=== PATIENT | male | born 1965 | race Caucasian/White ===

== ENCOUNTER 2020-04-07 09:00 | Outpatient (RCR) | payer OTHER, SELFPAY ==
[2020-03-10 08:25] VITALS: BP_SYST 85
--- NOTE | 2020-03-10 09:51 | PTOPEVAL ---
PHYSSICAL THERAPY EVALUATION AND PLAN OF TREATMENT 03-10-2020 Thank you for referring Kvng Fuchs to [facility], for the diagnosis of chronic R shoulder pain.? He is scheduled to be seen for therapy? 2x/week for 4 weeks. Please review, sign, date and return this plan of care CESAR. I agree with and certify that the following plan of care is medically necessary. Referring Physician Date Attending Provider: Dr. Tyrone Hay *PT Outpatient Evaluation Document 03/10/20 08:25 HARRIET (Rec: 03/10/20 09:35 HARRIET [id number]) Therapy Assessment Status Assessment Status Assessment Status Evaluation Outpatient Past Medical History Past Medical History Source of Past Medical History Patient Neurological History Hx Other Neurological Disorders Yes: neuropathy in feet and hands, legs Cardiovascular History Hx Other Cardiac Disorders Yes Respiratory History Hx Asthma Yes Hx Chronic Obstructive Pulmonary Disease Yes (COPD) Hx Sleep Apnea Yes: have CPAP Gastrointestinal History Hx Cirrhosis Yes Hx Gastrointestinal Bleed Yes Hx Other Gastrointestinal Disorders Yes: EGD with multiple procedures Musculoskeletal History Hx Other Musculoskeletal Disorders Yes: R > L shoulder pain;R big toe injury Endocrine History Hx Diabetes Yes Evaluation Information Problem Diagnosis chronic R shoulder pain Onset about 2 years Subjective Information have had chronic shoulder pain Query Text:As Reported By Patient/ , had other medical issues, so Family have not been able to adress shoulder pain; MRI 2016- tear in infraspinatus, subscapularis, supraspinatus; had injection 03-01-20help shoulder; 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
--- NOTE | 2020-04-07 09:57 | PTOPEVAL ---
PHYSICAL THERAPY REEVALUATION AND HOLD PT 04-07-2020 Refer to the clinical summary below for pt's comparison in status to the initial evaluation. He will be on HOLD for PT, until his follow up appointment. If PT is to continue, please give him a new script. Thank you for referring Kvng Fuchs to [facility]. Please review, sign, date and return this reevaluation CESAR. I agree with and certify that the following plan of care is medically necessary. Referring Physician Date Attending Provider: Dr. Tyrone Hay *PT Outpatient Re- evaluation Document 04/07/20 09:10 HARRIET (Rec: 04/07/20 09:57 HARRIET [id number]) Subjective Information Kvng reports: have dr Query Text:As Reported By Patient/ appointment Apr 26; feels Family like shoulder is moving a little better, but still hurts all time; R hand now hurting more too; have been doing his exercises; Pain Assessment Timing of Pain Assessment Timing of Pain Assessment Assessment Pain Scale Pain Scale Used Numeric (1 - 10) Self Report Pain Assessment Right Shoulder(s) Reported Pain Level 6 Radicular Pain Location L trunk and shoulder spasms and tight, comes and goes when move R arm Pain Frequency Chronic Other Pain Description feels like shoulder dislocated ; mid humerus been sawed off & hurts; Lowest Pain Intensity 6 Greatest Pain Intensity 9 Other Pain Aggravating Factors reaching arm to side and back; cannot lie on R shoulder; awaken from sleep3-4 Additional Pain Comments pain over anterior -mid humerus, top joint, mid scapular areashoulder pops Pain Score Pain Score 6: Self Report Additional Pain Score Comments also reports L shoulder starting to hurt as do more with R shoulder; R hand pain---3 & 4th fingers at MC joints- 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
--- NOTE | 2020-05-13 08:39 | PCPTNOTE ---
PHYSICAL THERAPY DISCHARGE 05-13-2020 Attending Provider: Dr. Tyrone Hay Patient:Kvng Fuchs Date of :1965 Mr. Fuchs has not returned for any further treatments since the reevaluation on 04/07/2020, therefore he will be discharged at this time. Refer to the reevaluation for his status at the last session. Thank you for referring this patient to [facility]. Please review, sign, date and return this discharge summary CESAR. I have been updated about the patient's current status and I agree with discharge from the above service at this time. Referring Physician Date
== END 2020-05-13 11:56 | disposition home or self-care (01) ==
LOC: ANHPT 09:00
PROVIDERS: PCP Emergency Medicine
DX: M25.511 Pain in right shoulder (principal); M75.101 Unspecified rotator cuff tear or rupture of right shoulder, not specified as traumatic; G25.89 Other specified extrapyramidal and movement disorders; G89.29 Other chronic pain
CPT/HCPCS: 97110; 97140; 97161

== ENCOUNTER 2020-05-28 14:23 | Outpatient (CLI) | payer OTHER, SELFPAY ==
--- NOTE | 2020-06-01 09:44 | WPDPFTINT ---
PFT Interpretation PFT Interpretation: This PFT met all criteria for ATS standards and reproducibility FEV/FVC post bronchodilator 53% FEV1 32% or 1.19 liters FVC 43% or 2.24 liters TLC 91% RV 126% RV/TLC 46% DLCO 65% when adjusted for alveolar volume but not adjusted for hemoglobin Flow volume loops showed Significant expiratory coving Impression: Severe airflow obstruction With air trapping and mildly decreased diffusion capacity. This pattern is suggestive of COPD with possible underlying asthma component. Clinical correlation is advised.
== END 2020-05-28 14:24 | disposition home or self-care (01) ==
LOC: ANHPFT 14:24
PROVIDERS: PCP Emergency Medicine; Visit Provider Nurse Practitioner
DX: J44.9 Chronic obstructive pulmonary disease, unspecified (principal); R94.2 Abnormal results of pulmonary function studies
CPT/HCPCS: 94060; 94726; 94729

== ENCOUNTER 2021-01-11 12:06 | Emergency (ER) | payer OTHER, SELFPAY ==
--- NOTE | ~2021-01-11 | XR_ITS ---
EXAMINATION: XR knee RT min 4V EXAM DATE: 01/11/2021 13:15 INDICATION: Pain, Swelling Rt knee;no known injury . TECHNIQUE: Right knee lateral, frontal AP, frontal PA tunnel, sunrise projections. There is no prior study for comparison. FINDINGS: No evidence osteochondral defect or joint body in the right knee joint. There are no acut e fractures or dislocations identified. There is no subcutaneous gas. There is a small joint effusi on. There is some edema within Hoffa's fat pad and along the medial anterior aspect of the knee. The re are no radiopaque foreign bodies. IMPRESSION: 1. Small right knee joint effusion. 2. Mild soft tissue swelling. Reviewed, dictated and finalized at location A.
[2021-01-11 12:15] VITALS: BP 120/68; PULSE 72; RESP 16; TEMP 36.5; O2SAT 96
--- NOTE | 2021-01-11 13:04 | ED.EXTPRO ---
HPI - Extremity Problem General Chief complaint: Extremity Problem,Nontraumatic Stated complaint: R KNEE PAIN Time Seen by Provider: 01/11/21 12:55 Source: patient and RN notes reviewed Mode of arrival: ambulatory Limitations: no limitations History of Present Illness HPI Narrative: Patient presents today complaining of right knee pain x1 week. States pain is present with any movement of the knee. Currently rates his pain 7/10 and has been taking Tylenol and using a brace with mild relief. Pain is significantly worse with weightbearing. Denies that his baseline and that neuropathy is worse than normal. MD Complaint: extremity swelling Related Data Home Medications Medication Instructions Recorded Confirmed esomeprazole magnesium 20 mg 20 mg PO DAILY 03/25/19 01/11/21 capsule,delayed release gabapentin 300 mg capsule 900 mg PO TID 03/25/19 01/11/21 glimepiride 4 mg tablet 8 mg PO BID 03/25/19 01/11/21 metformin 850 mg tablet 1,700 mg PO BID 03/25/19 01/11/21 propranolol 20 mg tablet 60 mg PO BID tablet 03/25/19 01/11/21 albuterol sulfate 2 puff INHALATION Q4-6H PRN 01/11/21 01/11/21 amitriptyline 25 mg PO HS 01/11/21 01/11/21 budesonide-formoterol [Symbicort] 2 puff INHALATION BID 01/11/21 01/11/21 insulin glargine [Basaglar KwikPen 28 unit SUBCUT DAILY 01/11/21 01/11/21 U-100 Insulin] ipratropium bromide [Atrovent HFA] 2 puff INHALATION QID 01/11/21 01/11/21 losartan 25 mg PO DAILY 01/11/21 01/11/21 simvastatin 20 mg PO DAILY 01/11/21 01/11/21 Allergies Allergy/AdvReac Type Severity Reaction Status Date / Time Penicillins Allergy Unknown Hives Verified 01/11/21 12:36 Review of Systems Review of Systems: CONSTITUTIONAL: Denies body aches, fever, chills, or sweats. EYES: Denies visual changes, redness, or discharge. ENT: Denies rhinorrhea, congestion, sore throat, or otalgia. CARDIOVASCULAR: Denies chest pain, palpitations, or edema. RESPIRATORY: Denies cough or dyspnea. GASTROINTESTINAL: Denies abdominal pain, nausea, vomiting, or diarrhea. GENITOURINARY: Denies dysuria or hematuria. SKIN: Denies rash, itching, or wounds. MUSCULOSKELETAL: Denies back pain, or myalgia. + Right knee pain NEUROLOGIC: Denies headache, numbness, tingling, or weakness. PSYCH: Denies depression or anxiety. PMFSH Past Medical History Medical History Anemia Bleeding tendency Cardiac arrhythmia Diabetes Elevated lipids Hepatitis Hypertension Neuropathy Surgical History Surgical History History of ear surgery History of esophagogastroduodenoscopy (EGD) Family History Family History Father Diabetes mellitus Mother Squamous cell carcinoma Father Diabetes mellitus Social History Social History Smoking status: Former smoker Alcohol intake: never Comments At time of signature, I have reviewed and agree with nursing past medical, surgical, social and family history unless otherwise noted. Please see nursing chart for further information. There is no relevant family history pertinent to the presenting complaint Exam Narrative: GENERAL: Well-appearing, well-nourished, and in no acute distress. HEAD: Normocephalic, atraumatic. EYES: EOMI. No redness or drainage. Conjunctivae normal. ENT: Mucous membranes pink and moist. NECK: Normal AROM. CHEST: No respiratory distress. EXTREMITIES: Right knee: Tenderness generally about the knee, anteriorly and posteriorly. Effusion noted. No erythema or ecchymosis noted. Pain with any range of motion or movement. Distal sensation intact. Capillary refill normal. Posterior tibial pulse normal. SKIN: Warm, dry, no rash. Capillary refill normal. Normal skin turgor. NEURO: No focal deficits. Alert and oriented x3. Gait steady. PSYCH:
== END 2021-01-11 13:49 | disposition home or self-care (01) ==
PROVIDERS: Emergency Provider Nurse Practitioner; PCP Emergency Medicine
DX: M25.461 Effusion, right knee (principal); Z87.891 Personal history of nicotine dependence; E11.9 Type 2 diabetes mellitus without complications; I10 Essential (primary) hypertension; G62.9 Polyneuropathy, unspecified; D64.9 Anemia, unspecified
CPT/HCPCS: 73564; 99213; G0463

== ENCOUNTER 2021-01-22 09:46 | Outpatient (CLI) | payer OTHER, SELFPAY ==
--- NOTE | ~2021-01-22 | MR_ITS ---
EXAMINATION: MR knee RT wo con DATE: 01/22/2021 11:12 INDICATION: Right knee pain. TECHNIQUE: Magnetic resonance imaging (MRI) of the right knee was performed without intravenous contr ast. Sequences included axial PD-weighted FS FSE, coronal PD-weighted FSE and PD-weighted FS FSE, sag ittal PD-weighted FSE, and sagittal T2-weighted FS FSE. COMPARISON: Right knee radiographs 01/11/2021 FINDINGS: Medial compartment: Medial meniscus is normal. There is cartilage surface irregularity of tibial condyle. There is shallo w partial-thickness cartilage loss of femoral condyle. There is focal deep partial thickness cartilag e loss of femoral condyle involving the central articular surface with mild subchondral edema-like si gnal intensity. Lateral compartment: The lateral meniscus is normal. There is cartilage surface irregularity of tibial condyle. Femoral ca rtilage is normal. Patellofemoral compartment: There is shallow partial-thickness cartilage loss of patellar medial facet, median ridge, and lateral facet. There is cartilage surface irregularity of trochlea. Ligaments and tendons: The anterior and posterior cruciate ligaments are normal. Medial collateral ligament and lateral imani ateral ligament complex are intact. There is mild patellar tendinopathy. Fluid: There is a moderate-sized knee joint effusion. There is mild superficial infrapatellar bursitis. IMPRESSION: 1. Moderate chondrosis of medial compartment and mild chondrosis of lateral and patellofemoral compar tments. 2. Moderate-sized knee joint effusion. Reviewed, dictated and finalized at location A. IMPRESSION: 1. Moderate chondrosis of medial compartment and mild chondrosis of lateral and patellofemoral compartments. 2. Moderate-sized knee joint effusion.
== END 2021-01-22 09:47 | disposition home or self-care (01) ==
LOC: ANHIMG 09:47
PROVIDERS: PCP Emergency Medicine; Visit Provider Orthopaedic Surgery
DX: M25.461 Effusion, right knee (principal)
CPT/HCPCS: 73721

== ENCOUNTER 2022-08-14 10:16 | Outpatient (CLI) | payer OTHER, SELFPAY ==
--- NOTE | ~2022-08-14 | MR_ITS ---
MRI of the right knee Clinical history: Internal derangement Technique: Coronal proton density and proton density-weighted images, sagittal proton-density and T2 fat-sat images, and axial proton-density fat-saturated images were acquired. Findings: Anterior and posterior cruciate ligaments are intact. Medial collateral ligament and the la teral collateral ligament complex are intact. Popliteus tendon is intact. There is horizontal/oblique tear of the posterior horn of the medial meniscus. No lateral meniscal te ar identified. There is focal high-grade chondromalacia the posterior aspect of the medial femoral condyle, with foc al subchondral reactive marrow edema. Articular cartilage in the lateral and patellofemoral compartme nts is well preserved. Extensor mechanism is intact. Minimal joint effusion present. No Calderon's cyst. Impression: Horizontal/oblique tear of the posterior horn of the medial meniscus. Focal chondromalacia in the medial femoral condyle, as detailed above. Reviewed, dictated and finalized at [facility]. Impression: Horizontal/oblique tear of the posterior horn of the medial meniscus. Focal chondromalacia in the medial femoral condyle, as detailed above.
== END 2022-08-14 10:17 | disposition home or self-care (01) ==
PROVIDERS: PCP Emergency Medicine; Visit Provider Orthopaedic Surgery
DX: S83.241A Other tear of medial meniscus, current injury, right knee, initial encounter (principal); M94.261 Chondromalacia, right knee; G89.29 Other chronic pain
CPT/HCPCS: 73721

== ENCOUNTER 2022-08-16 13:51 | Outpatient (CLI) | payer OTHER, SELFPAY ==
--- NOTE | ~2022-08-16 | CT_ITS ---
CT Scan of the Chest without Contrast: Clinical Indication: Lung cancer screening, personal history of nicotine dependence Technique: Contiguous sections were acquired throughout the chest without intravenous contrast. Dose reduction technique was used on this scan by utilizing automated exposure control and iterative recon struction technique. The dose-length product (DLP) was 282.73 mGy-cm. COMPARISON: 09/17/2013 Findings: There is no evidence of any significant mediastinal, hilar or axillary lymphadenopathy. Mild coronary artery calcifications noted. There is an area of prominent serpiginous opacities on the right side o f the distal esophagus, suggestive of varices or other prominent vessels. Mass less likely given that attenuation about the soft tissue densities. There is no evidence of pleural or pericardial effusion. Calcified left upper lobe granulomas noted. No other pulmonary nodule identified. Images through the upper abdomen reveal no abnormalities. Impression: Lung-RADS 2: Benign appearance. 12 month follow-up screening CT advised. Suspected interval development of focal varices along the right side of the distal esophagus. Correla te clinically. Consider endoscopy as indicated. Reviewed, dictated and finalized at [facility]. Impression: Lung-RADS 2: Benign appearance. 12 month follow-up screening CT advised. Suspected interval development of focal varices along the right side of the dis guerrero esophagus. Correlate clinically. Consider endoscopy as indicated.
== END 2022-08-16 13:52 | disposition home or self-care (01) ==
PROVIDERS: PCP Emergency Medicine; Visit Provider Nurse Practitioner
DX: Z12.2 Encounter for screening for malignant neoplasm of respiratory organs (principal); Z87.891 Personal history of nicotine dependence
CPT/HCPCS: 71271

== ENCOUNTER 2022-08-25 09:28 | Outpatient (CLI) | payer OTHER, SELFPAY ==
--- NOTE | 2022-08-25 09:38 | ECG_ITS ---
Measurements Intervals [place] Rate: 67 P: 19 ND: 207 QRS: -20 QRSD: 118 T: 15 QT: 405 QTc: 430 Interpretive Statements SINUS RHYTHM LEFTWARD AXIS ABNORMAL ECG NO PREVIOUS ECG AVAILABLE FOR COMPARISON Electronically Signed On 08-25-2022 15:30:57 CDT by Naun Junior M.D.
[2022-08-25 10:11] LABS: Anion Gap 8 mmol/L (8-16); Blood Urea Nitrogen 12 mg/dL (9-20); Calcium 8.8 mg/dL (8.4-10.2); Carbon Dioxide 29 mmol/L (22-30); Chloride 103 mmol/L (98-107); Estimated Glomerular Filt Rate > 60; Glucose 126 mg/dL (65-110); Potassium 4.2 mmol/L (3.4-5.0); Sodium 140 mmol/L (137-145)
[2022-08-25 10:33] LABS: INR 1.1; Prothrombin Time 13.9 Seconds (11.1-14.7)
[2022-08-25 10:34] LABS: Partial Thromboplastin Time 29.2 SECONDS (22.3-36.8)
== END 2022-08-25 09:29 | disposition home or self-care (01) ==
LOC: ANHSURGERY 09:32
PROVIDERS: Anesthesiology; PCP Emergency Medicine; Visit Provider Orthopaedic Surgery
DX: E11.9 Type 2 diabetes mellitus without complications (principal); K75.81 Nonalcoholic steatohepatitis (NASH); Z01.818 Encounter for other preprocedural examination
CPT/HCPCS: 36415; 80048; 85610; 85730; 93005

== ENCOUNTER 2022-09-13 06:55 | Day surgery (SDC) | payer OTHER, SELFPAY ==
[2022-08-24 12:41] VITALS: BMI 36.3
--- NOTE | 2022-08-24 12:48 | PC.NURSE ---
Addendum entered by Christine Dumont RN 09/05/22 12:17: PT TO ARRIVE AT 0830 ON 09/13/22 FOR SURGERY AT 1030. LAST DOSE OF VITAMINS 09/09/22. Original Note: Report to the Outpatient Waiting Room, entrance under the green pavilion located off [facility], at time 7:00 on date 09/01/22. Planned Procedure Time: 9:00. Time changes happen often and if your time is changed the preop area will call you the afternoon before. - You and your visitor will be asked to self-screen and do not enter if you have any COVID symptoms. - A mask is optional within the hospital at this time. Patients may have clear liquids (water, carbonated beverages, clear teas, apple juice) until 3 hours prior to surgery with a maximum of 20 ounces. - No food from midnight until time of surgery Take the following medications with a SIP of water the morning of surgery: INHALERS, PROPRANOLOL DO NOT STOP ANY OF YOUR OTHER PRESCRIPTION MEDICATIONS PRIOR TO SURGERY ?EXCEPT THE FOLLOWING Medications to discontinue per physician: VITAMINS/SUPPLEMENTS Date to take last dose: 08/28/22 Please no make-up, nail italian, hairspray, perfume, deodorant, or body powder the day of surgery. No jewelry (including any body piercings) or valuables the day of surgery, leave them at home. Please take a shower or bath the night before, or the morning of, surgery with an antibacterial soap. Wear comfortable, loose fitting clothing. - Jewelry must be removed prior to entering the operating room. Rings and piercings that are not removed may be cut off. - The hospital will not accept responsibility for valuables. - Please leave all valuables, including medications, at home the day of surgery. If you are going home after surgery, a licensed local bulk driver must drive you home. - NO public transportation without another adult if you receive anesthesia. - We recommend that an adult stay with you for 24 hours following discharge. - We also recommend that you do not drive, make important decision, drink alcoholic beverages, or take any drugs that were not prescribed by your health care provider for at least 24 hours after your discharge time. Follow any additional instructions given to you from your surgeon. If you or anyone in your household have experienced Covid symptoms in the past week, please notify your surgeon or the nurse liaison at the phone number below for possible testing. Telephone instructions given to DEIDRA AVILEZ and asked if any additional questions and then verbalized understanding. Patient advised to call surgeon office or pre surgery nurse liaison [phone] if any additional questions.
--- NOTE | 2022-08-31 12:47 | WPDANESEPPF ---
Anes - Initial Pre Proc Eval Procedure: Operation Date: 09/01/22 09:00 Proposed Procedures p Right Knee Arthroscopy With Possible Repair of Medial Meniscus Versus Meniscectomy - Chetan Pa MD Date/Time: 08/31/22 12:47 Surgeon: Chetan Pa MD Pre Op Diagnosis: right medial meniscus tear Patient Data Age: 57 Gender: M Height: 1.85 m Weight: 124.75 kg Allergies Allergy/AdvReac Type Severity Reaction Status Date / Time Penicillins Allergy Unknown Hives Verified 08/24/22 12:38 Home Medications Medication Instructions Recorded Confirmed Type esomeprazole magnesium 20 mg 20 mg PO DAILY 03/25/19 08/25/22 History capsule,delayed release (Nexium) glimepiride 4 mg tablet 8 mg PO BID 03/25/19 08/25/22 History metformin 850 mg tablet 1,700 mg PO BID 03/25/19 08/25/22 History propranolol 20 mg tablet 60 mg PO BID 03/25/19 08/25/22 History albuterol sulfate 90 mcg/actuation 2 puff inhalation Q4-6H PRN 01/11/21 08/25/22 History aerosol inhaler Shortness Of Breath amitriptyline 25 mg tablet 25 mg PO HS 01/11/21 08/25/22 History insulin glargine 100 unit/mL (3 28 unit subcut BID 01/11/21 08/25/22 History mL) subcutaneous pen (Basaglar KwikPen U-100 Insulin) losartan 25 mg tablet 25 mg PO DAILY 01/11/21 08/25/22 History simvastatin 20 mg tablet 20 mg PO DAILY 01/11/21 08/25/22 History fluticasone fur. 100 mcg-umeclid 1 inh inhalation DAILY 08/24/22 08/25/22 History 62.5 mcg-vilant 25 mcg inhalat.powder (Trelegy Ellipta) multivitamin 1 tablet PO DAILY 08/24/22 08/25/22 History chlorhexidine gluconate 4 % 1 applic topical DAILY #237 mL 08/25/22 08/25/22 Rx topical liquid (Hibiclens) Results Review: All pre-operative results and documents have been reviewed as part of the pre-operative evaluation. [facility] Past Medical History Medical History (Updated 08/31/22 @ 12:49 by Dario Daniels DO) Anemia Bleeding tendency Cardiac arrhythmia Cirrhosis Diabetes Type II Elevated lipids Esophageal varices Hepatitis Hypertension Neuropathy Right knee pain Surgical History Surgical History History of ear surgery History of esophagogastroduodenoscopy (EGD) [id number] [facility] History of rotator cuff surgery Family History Family History Father Diabetes mellitus Mother Squamous cell carcinoma Father Diabetes mellitus Other Asthma Heart disease History of arthritis History of lung disease History of neuropathy Social History Social History Smoking packs per day: 1 Smoking cigarettes per day: 20.0 Years smoked: 10 Smoking pack-years: 10.00 Smoking status: Former smoker Tobacco type: cigarettes Smoking end date: 05/07/07 Additional smoking assessment comments: Sarwat smoked 1 pack per day for 10 years Alcohol intake: never Substance use: never Substance use type: does not use Living arrangements: with family Gender identity (if verbalized by the patient): Male Spiritual care concerns: No Anes - Eval Final PreProcedure Day of Procedure 08/31/22 12:47 Patient weight: obese Heart: regular rate and rhythm Lungs: clear to auscultation Airway: Mallampati scale class II Neurological: alert and oriented Last oral intake: >/= 8 hours ASA classification: IV Emergent: no Anesthetic plan: proceed Anesthesia type and monitoring: general ETT and standard monitoring Results Review: All pre-operative results and documents have been reviewed as part of the pre-operative evaluation. Informed Consent: The patient's anesthetic plan and its attendant risks and benefits were discussed with the patient/family/POA. Questions were solicited and answers provided to the satisfaction of the patient/family/POA.
--- NOTE | 2022-09-05 12:16 | PC.NURSE ---
Pt states no changes in medications or health history since initial interview. New pre-op instructions reviewed with pt. Pt denies further questions at this time.
[2022-09-13] VITALS (7 sets, daily range): BP systolic 93–124; BP diastolic 54–75; PULSE 62–74; RESP 10–16; TEMP 36.4; O2SAT 95–100
--- NOTE | 2022-09-13 07:20 | WPDHPUPDATE1 ---
History and Physical Update Update Date/Time: 09/13/22 07:20 History and Physical has been reviewed, including an updated exam of the patient. There are NO changes in the patient's condition. Risks, benefits, and alternatives have been discussed and questions answered. Patient agrees to proceed with procedure.
[2022-09-13] MEDS: ACETAMINOPHEN 500 MG TABLET 1000 MG PO (09:04)
[2022-09-13] MEDS: CELECOXIB 200 MG CAPSULE PO (09:05)
[2022-09-13 09:17] LABS: Glucose Point of Care 135 mg/dl (65-105)
--- NOTE | 2022-09-13 09:42 | SUR.PREOP ---
pt states has used crutched before,ordered crutches for home use.
--- NOTE | 2022-09-13 09:42 | WPDANESEPPF ---
Anes - Initial Pre Proc Eval Procedure: Operation Date: 09/13/22 10:30 Proposed Procedures p Right Knee Arthroscopy With Possible Repair of Medial Meniscus Versus Meniscectomy - Chetan Pa MD Date/Time: 09/13/22 09:42 Surgeon: Chetan Pa MD Pre Op Diagnosis: right medial meniscus tear Patient Data Age: 57 Gender: M Height: 1.85 m Weight: 121.5 kg Last Vital Signs Temp 97.6 F 09/13/22 08:43 Pulse 64 09/13/22 08:43 Resp 16 09/13/22 08:43 BP 124/63 09/13/22 08:43 Pulse Ox 98 09/13/22 08:43 O2 Del Method Room Air 09/13/22 08:43 Allergies Allergy/AdvReac Type Severity Reaction Status Date / Time Penicillins Allergy Severe Hives Verified 09/13/22 08:58 Home Medications Medication Instructions Recorded Confirmed Type esomeprazole magnesium 20 mg 20 mg PO DAILY 03/25/19 09/13/22 History capsule,delayed release (Nexium) glimepiride 4 mg tablet 8 mg PO BID 03/25/19 09/13/22 History metformin 850 mg tablet 1,700 mg PO BID 03/25/19 09/13/22 History propranolol 20 mg tablet 60 mg PO BID 03/25/19 09/13/22 History albuterol sulfate 90 mcg/actuation 2 puff inhalation Q4-6H PRN 01/11/21 09/13/22 History aerosol inhaler Shortness Of Breath amitriptyline 25 mg tablet 25 mg PO HS 01/11/21 09/13/22 History insulin glargine 100 unit/mL (3 28 unit subcut BID 01/11/21 09/13/22 History mL) subcutaneous pen (Basaglar KwikPen U-100 Insulin) losartan 25 mg tablet 25 mg PO DAILY 01/11/21 09/13/22 History simvastatin 20 mg tablet 20 mg PO DAILY 01/11/21 09/13/22 History fluticasone fur. 100 mcg-umeclid 1 inh inhalation DAILY 08/24/22 09/13/22 History 62.5 mcg-vilant 25 mcg inhalat.powder (Trelegy Ellipta) multivitamin 1 tablet PO DAILY 08/24/22 09/13/22 History Laboratory Tests 09/13/22 09:15 POC Capillary Glucose 135 H mg/dl (65-105) Patient hx anesthesia problems: none Family hx anesthesia problems: none Results Review: All pre-operative results and documents have been reviewed as part of the pre-operative evaluation. [facility] Past Medical History Medical History (Updated 08/31/22 @ 12:49 by Dario Daniels DO) Anemia Bleeding tendency Cardiac arrhythmia Cirrhosis Diabetes Type II Elevated lipids Esophageal varices Hepatitis Hypertension Neuropathy Right knee pain Surgical History Surgical History History of ear surgery History of esophagogastroduodenoscopy (EGD) [id number] [facility] History of rotator cuff surgery Family History Family History Father Diabetes mellitus Mother Squamous cell carcinoma Father Diabetes mellitus Other Asthma Heart disease History of arthritis History of lung disease History of neuropathy Social History Social History Smoking packs per day: 1 Smoking cigarettes per day: 20.0 Years smoked: 10 Smoking pack-years: 10.00 Smoking status: Former smoker Tobacco type: cigarettes Smoking end date: 05/07/07 Additional smoking assessment comments: Sarwat smoked 1 pack per day for 10 years Alcohol intake: never Substance use: never Substance use type: does not use Living arrangements: with family Gender identity (if verbalized by the patient): Male Spiritual care concerns: No Anes - Eval Final PreProcedure Day of Procedure 09/13/22 09:42 Patient weight: obese Heart: regular rate and rhythm Lungs: clear to auscultation Airway: Mallampati scale class II Neurological: alert and oriented Last oral intake: >/= 8 hours ASA classification: III Emergent: no Anesthetic plan: proceed Anesthesia type and monitoring: general LMA and standard monitoring Results Review: All pre-operative results and documents have been reviewed as part of the pre-ope
[2022-09-13] MEDS: LACTATED RINGERS 1,000 ML 30 ML IV CONT (10:07)
[2022-09-13] MEDS: ceFAZolin 3 GM/D5W 100 ML 100 ML IVPB (10:17)
[2022-09-13] MEDS: BUPivacaine HCL 0.5% 10 ML AMP 20 ML INFILTRATE (10:45)
--- NOTE | 2022-09-13 11:37 | W.PM.PROC2 ---
Procedure Note - Detailed Date of Procedure 09/13/22 Pre-op Diagnosis right medial meniscus tear Post-op Diagnosis Same Procedure Performed RIGHT KNEE SCOPE Surgeon Chetan Pa MD Anesthesia General Description of Procedure PATIENT WAS TAKEN TO THE OR. THE RIGHT LEG WAS PREPPED AND DRAPED STERILE. TROCARS WERE PLACED IN THE USUAL FASHION. CAMERA WAS INTRODUCED. THERE WAS CHONDROMALACIA TO THE PATELLA FEMORAL JOINT. THERE WAS A LOT OF SYNOVITIS IN ALL COMPARTMENTS. THE MEDIAL COMPARTMENT SHOWED CHONDROMALACIA TO THE MEDIAL FEMORAL CONDYLE. A SHAVER WAS USED TO PREFORM A CHONDROPLASTY. THERE WAS A COMPLEX MEDIAL MENISCUS TEAR. THE TEAR WAS RESECTED WITH A BITER AND A SHAVER DOWN TO A SMOOTH BASE. ABOUT 20% OF THE MENISCUS WAS REMOVED. THE ACL WAS INTACT. THE LATERAL MENISCUS WAS NOT TORN. THE LATERAL COMPARTMENT HAD MINIMAL CHONDROMALACIA. CHONDROPLASTY WAS PREFORMED. SYNOVECTOMY WAS PREFORMED. THE PATELLO FEMORAL JOINT UNDERWENT CHONDROPLASTY. THERE WAS GRADE 2 CHONDROMALACIA IN PART OF THE TROCHLEA AND PART OF THE PATELLA. SYNOVECTOMY WAS PREFORMED IN THE SUPERIOR MEDIAL COMPARTMENT. THE WOUNDS WERE APPROXIMATED WITH 4.0 NYLON. STERILE DRESSING WAS APPLIED. PATIENT WAS EXTUBATED. Estimated Blood Loss 5 Complications No immediate complications Condition Stable Disposition PACU
[2022-09-13 11:46] LABS: Glucose Point of Care 170 mg/dl (65-105)
== END 2022-09-13 13:15 | disposition home or self-care (01) ==
PROVIDERS: PCP Emergency Medicine; Visit Provider Orthopaedic Surgery
PROC: (CPT 29870; principal; 2022-09-13 10:30)
DX: M23.331 Other meniscus derangements, other medial meniscus, right knee (principal); M65.861 Other synovitis and tenosynovitis, right lower leg; M22.41 Chondromalacia patellae, right knee; I10 Essential (primary) hypertension; E11.40 Type 2 diabetes mellitus with diabetic neuropathy, unspecified; E78.5 Hyperlipidemia, unspecified; K74.60 Unspecified cirrhosis of liver; Z87.891 Personal history of nicotine dependence; E66.9 Obesity, unspecified; Z68.35 Body mass index [BMI] 35.0-35.9, adult; Z79.84 Long term (current) use of oral hypoglycemic drugs; Z79.51 Long term (current) use of inhaled steroids; Z79.4 Long term (current) use of insulin
CPT/HCPCS: 29881; 29876; 82948; A9270; J0690; J1100; J2250; J2405; J2704; J3010; J7120

== ENCOUNTER 2023-08-01 14:04 | Outpatient (CLI) | payer MEDICARE, SELFPAY ==
--- NOTE | ~2023-08-01 | MR_ITS ---
EXAMINATION: MR knee RT wo con DATE: 08/01/2023 15:09 INDICATION: Other tear of medial meniscus. Right knee pain and swelling. TECHNIQUE: Magnetic resonance imaging (MRI) of the right knee was performed without intravenous contr ast. Sequences included axial PD-weighted FS FSE, coronal PD-weighted FSE and PD-weighted FS FSE, sag ittal PD-weighted FSE, and sagittal T2-weighted FS FSE. COMPARISON: Right knee radiographs 11/20/2022, MRI 08/14/2022 FINDINGS: Medial compartment: There is a complex tear involving body and posterior horn of medial meniscus. There is cartilage surf talisha irregularity of tibial condyle. There is partial-thickness cartilage loss of femoral condyle, arleen p at the central articular surface where there is mild subchondral edema-like marrow signal intensity . Lateral compartment: Lateral meniscus is normal. Lateral compartment cartilage is normal. Patellofemoral compartment: There is shallow partial-thickness cartilage loss of patellar lateral facet. There is cartilage surfa ce irregularity of trochlea. Ligaments and tendons: The anterior and posterior cruciate ligaments are normal. There are changes of prior sprain of fibula r collateral ligament characterized by increased signal intensity. Again seen is fluid between the cage perior and deep components of medial collateral ligament. There is mild patellar tendinopathy. Fluid: There is a small knee joint effusion. IMPRESSION: 1. Moderate chondrosis of medial compartment and mild chondrosis of lateral and patellofemoral compar tments. 2. Complex tear of medial meniscus. 3. Small knee joint effusion. Reviewed, dictated and finalized at location A. IMPRESSION: 1. Moderate chondrosis of medial compartment and mild chondrosis of lateral and patellofemoral compartments. 2. Complex tear of medial meniscus. 3. Small knee joint effusion.
== END 2023-08-01 14:05 ==
LOC: GOSHIMG 14:04
PROVIDERS: PCP Emergency Medicine; Visit Provider Orthopaedic Surgery
DX: S83.231A Complex tear of medial meniscus, current injury, right knee, initial encounter (principal); M94.261 Chondromalacia, right knee; M25.461 Effusion, right knee; X58.XXXA Exposure to other specified factors, initial encounter
CPT/HCPCS: 73721

== ENCOUNTER 2023-08-20 12:54 | Outpatient (CLI) | payer MEDICARE, SELFPAY ==
[2023-08-20 14:24] LABS: Appearance Urine Clear (Clear); Bilirubin Urine Negative (Negative); Blood Urine Negative (Negative); Color Urine Yellow (Yellow); Glucose Urine UA 3+ mg/dL (Negative); Ketones Urine Negative (Negative); Leukocyte Esterase Ur Negative LEU/UL (Negative); Nitrate Urine Negative (Negative); Protein Urine Negative (Negative); Urobilinogen Urine 0.2 mg/dL (<2.0)
[2023-08-20 14:24] LABS: Eosinophils Absolute Auto 0.1 K/mm3 (0-0.3); Eosinophils Percent Auto 3.4 % (0-4.4); Hematocrit 43.2 % (42.0-52.0); Hemoglobin 14.4 g/dL (14.0-18.0); Immature Granulocyte Absolute 0.03 K/mm3 (0.00-0.031); Immature Granulocyte Percent A 0.8 % (0-0.5); Immature Platelet Fraction Pct 5.9 % (0.9-11.2); Lymphocytes Absolute Auto 0.73 K/mm3 (0.9-3.2); Lymphocytes Percent Auto 18.8 % (18.3-44.2); Mean Corpuscular HGB Conc 33.3 g/dl (32-36); Mean Corpuscular Hemoglobin 29.6 pg (26-34); Mean Corpuscular Volume 88.9 fl (80-100); Mean Platelet Volume 11.5 fl (7.4-10.4); Monocytes Absolute Auto 0.3 K/mm3 (0.1-0.6); Monocytes Percent Auto 8.5 % (2.6-8.5); Neutrophils Absolute Auto 2.6 K/mm3 (1.3-6.7); Neutrophils Percent Auto 67.5 % (45.5-73.1); Platelet Count Result 82 k/mm3 (150-375); Red Blood Count 4.86 M/mm3 (4.6-6.20); Red Cell Distribution Width 13.4 % (11.5-14.5); White Blood Count 3.9 K/mm3 (4.5-10.0)
[2023-08-20 14:45] LABS: Add Urine Microscopic? NO
[2023-08-20 15:22] LABS: Alanine Aminotransferase 35 U/L (6-50); Albumin Level 4.3 g/dL (3.5-5.1); Alkaline Phosphatase 82 U/L (38-126); Anion Gap 7 mmol/L (4-12); Aspartate Amino Transferase 37 U/L (17-59); Bilirubin,Total 2.3 mg/dL (0.2-1.3); Blood Urea Nitrogen 11 mg/dL (9-20); Calcium 9.4 mg/dL (8.4-10.2); Carbon Dioxide 23 mmol/L (22-30); Chloride 105 mmol/L (98-107); Estimated Glomerular Filt Rate > 60; Glucose 329 mg/dL (65-110); Phosphorus 3.3 mg/dL (2.5-4.5); Potassium 4.1 mmol/L (3.4-5.0); Sodium 135 mmol/L (137-145)
[2023-08-20 15:51] LABS: Prostate Specific Antigen 0.4 ng/mL (< OR = 4.0)
[2023-08-20 16:18] LABS: Hemoglobin A1C 9.9 % (<5.7)
[2023-08-20 16:29] LABS: Folic Acid 19.7 ng/mL (2.76->20); Vitamin B12 > 1000.0 pg/mL (239-931)
[2023-08-20 23:58] LABS: Creatinine Urine 71.9 mg/dL
[2023-08-21 00:05] LABS: MALB Creatinine Ratio < 8.3 mg/g (0-30); Microalbumin Urine Random < 6.0 mg/L (0-16.7)
== END 2023-08-20 12:55 | disposition home or self-care (01) ==
PROVIDERS: PCP Emergency Medicine; Visit Provider Emergency Medicine
DX: Z01.818 Encounter for other preprocedural examination (principal); D69.6 Thrombocytopenia, unspecified; E11.40 Type 2 diabetes mellitus with diabetic neuropathy, unspecified; E78.2 Mixed hyperlipidemia; G47.31 Primary central sleep apnea; G47.33 Obstructive sleep apnea (adult) (pediatric); I10 Essential (primary) hypertension; J43.2 Centrilobular emphysema; K63.5 Polyp of colon; N40.1 Benign prostatic hyperplasia with lower urinary tract symptoms; M25.561 Pain in right knee
CPT/HCPCS: 36415; 80069; 80076; 81003; 82043; 82607; 82746; 83036; 84153; 84443; 85025; 85055

== ENCOUNTER 2023-09-06 15:45 | Outpatient (RCR) | payer MEDICARE, SELFPAY ==
--- NOTE | 2023-08-23 16:22 | PTOPEVAL1 ---
Assessment and note entered by Tanya Iraheta, PT, DPT Evaluation Information Assessment Status Evaluation Diagnosis R knee pain Subjective Information Pt states 1 year ago he got a partial R knee meniscectomy and a partial meniscus repair. Pt states he felt great for a week. He states he has had fluid draining off his knee 4-5 times, he states after he gets its drained it will feel great for a few days. He has also gotten a couple of steroid injections without relief. He states for the last year he has had consistent knee pain more than 90% of the time. He states he has a new meniscus tear, and also has bowed legs. Pt states he refuses to self inflict pain and doing therapy to make his knee worse, when surgery is his only option. He states his legs are strong and there is no muscle weakness but it feels like his leg is unstable and is going to dislocate with every step he takes. He reports his pain is a 6/10 at rest, 9/10 with activity, particularly going down stairs. He states he is not sure how much he will be able to participate in therapy d/t pain. Reported Pain Level Pain Score 6: Self Report Assessment PT Clinical Summary Kvng presents to therapy today for his initial evaluation with a diagnosis of a R meniscus tear. Today he demonstrates significant functional limitations d/t pain. He demonstrates active knee motion from 15 to 95 deg, ambulates with significant deviations and at a very decreased gait speed, and he cannot sit<>stand or climb stairs without UE support. All exercises and functional activities and limited by pain reports. Skilled therapy services are indicated to improve stability, manage pain, and to promote a return to PLOF. Therapy prognosis is questionable d/t high pain reports and poor tolerance. Plan of Care Interventions Electrical Stimulation,Gait Training,Hot Pack/Cold Pack,Manual Therapy,Neuro Re-education,Patient/ Caregiver Educati,Therapeutic Activities, Therapeutic Exercise PT Services Indicated Yes Treatment Frequency and 1x/wk for 6 visits Duration These treatments will address the objective and functional deficits as defined above. The patient will be advanced safely and appropriately in order for the patient to progress towards his/her prior level of function. Additional exercises will be introduced and as well as a comprehensive home exercise program upon d
--- NOTE | 2023-08-23 16:22 | OPREHPOC ---
Outpatient Therapy Plan of Care This is a Multidisciplinary Plan of Care that may contain components documented by all disciplines (PT, OT, and ST.) PT Problem 1 PT Problem #1 Knowledge Deficit PT Goal 1 Goal Pt to be IND with issued HEP Target Visit 8 PT Problem 2 PT Problem #2 Pain PT Goal 1 Goal Pt to report knee pain no greater than 5/10 in the last week. Target Visit 8 PT Goal 2 Goal Pt to report 75% improvement in overall symptoms. Target Visit 8 PT Problem 3 PT Problem #3 Impaired Range of Motion PT Goal 1 Goal Pt to improve active knee flexion ROM to 110 deg. Target Visit 8 PT Goal 2 Goal Pt to improve active knee extension ROM to -5 deg. Target Visit 8 PT Problem 4 PT Problem #4 Impaired Gait PT Goal 1 Goal Pt to improve 2 min walk test from 210ft to 300ft. Target Visit 8 PT Goal 2 Goal Pt to ambulate with equal stride length Target Visit 8
--- NOTE | 2023-08-31 10:35 | PCPTNOTE ---
Patient called & cancelled scheduled appointment this date due to having other plans.
--- NOTE | 2023-09-11 08:00 | PTOPDC ---
Assessment and note entered by Rolando Pollard, PT Evaluation Information Assessment Status Discharge - Pt Not Presen Diagnosis R knee pain Subjective Information Patient contacted clinic stated that he was approved for surgery and will no longer need pre- operative therapy. Requests discharge at this time . Assessment PT Clinical Summary Patient will be discharged today with anticipation of surgery. Please refer to last treatment note for discharge status at this time. Plan of Care PT Services Indicated D/C to HEP
== END 2023-09-11 10:20 | disposition home or self-care (01) ==
LOC: ANHPT 15:45
PROVIDERS: PCP Emergency Medicine; Visit Provider Orthopaedic Surgery
DX: M17.11 Unilateral primary osteoarthritis, right knee (principal); M25.561 Pain in right knee; M25.461 Effusion, right knee; S83.249D Other tear of medial meniscus, current injury, unspecified knee, subsequent encounter; G89.29 Other chronic pain
CPT/HCPCS: 97110; 97140; 97161

== ENCOUNTER 2023-09-20 12:46 | Outpatient (CLI) | payer MEDICARE, SELFPAY ==
--- NOTE | 2023-09-20 12:57 | ECG_ITS ---
SEE SCANNED COPY FOR CONFIRMED REPORT MTDD
== END 2023-09-20 12:47 | disposition home or self-care (01) ==
LOC: ANHSURGERY 12:53
PROVIDERS: PCP Emergency Medicine; Visit Provider Orthopaedic Surgery
DX: Z01.818 Encounter for other preprocedural examination (principal); E11.9 Type 2 diabetes mellitus without complications; I10 Essential (primary) hypertension
CPT/HCPCS: 93005

== ENCOUNTER 2023-09-28 01:40 | Day surgery (SDC) | payer MEDICARE, SELFPAY ==
[2023-08-21 13:21] VITALS: BMI 35.9
--- NOTE | 2023-08-21 13:22 | PC.NURSE ---
Report to the Outpatient Waiting Room, entrance under the green pavilion located off [facility], at time _0600_ on date _[id number]_. Planned Procedure Time: _0730_. Time changes happen often and if your time is changed the preop area will call you the afternoon before. - You and your visitor will be asked to self-screen and do not enter if you have any COVID symptoms. - A mask is optional within the hospital at this time. Patients may have clear liquids (water, carbonated beverages, clear teas, apple juice) until 3 hours prior to surgery with a maximum of 20 ounces. - No food from midnight until time of surgery Take the following medications with a SIP of water the morning of surgery: ____Propanolol and Trelegy. Albuterol if needed. DO NOT STOP ANY OF YOUR OTHER PRESCRIPTION MEDICATIONS PRIOR TO SURGERY ?EXCEPT THE FOLLOWING Medications to discontinue per physician No diabetic medications morning of surgery. Stop Multivitamin [id number] Please no make-up, nail australian, hairspray, perfume, deodorant, or body powder the day of surgery. No jewelry (including any body piercings) or valuables the day of surgery, leave them at home. Please take a shower or bath the night before, or the morning of, surgery with an antibacterial soap. Wear comfortable, loose fitting clothing. - Jewelry must be removed prior to entering the operating room. Rings and piercings that are not removed may be cut off. - The hospital will not accept responsibility for valuables. - Please leave all valuables, including medications, at home the day of surgery. If you are going home after surgery, a licensed drop hammer pile driver operator must drive you home. - NO public transportation without another adult if you receive anesthesia. - We recommend that an adult stay with you for 24 hours following discharge. - We also recommend that you do not drive, make important decision, drink alcoholic beverages, or take any drugs that were not prescribed by your health care provider for at least 24 hours after your discharge time. Follow any additional instructions given to you from your surgeon. If you or anyone in your household have experienced Covid symptoms in the past week, please notify your surgeon or the nurse liaison at the phone number below for possible testing. Telephone instructions given to _Kvng__and asked if any additional questions and then verbalized understanding. Patient advised to call surgeon office or pre surgery nurse liaison [phone] if any additional questions.
--- NOTE | 2023-09-20 11:46 | PC.NURSE ---
Report to the Outpatient Waiting Room, entrance under the green pavilion located off [facility], at time _0700_ on date _[id number]_. Planned Procedure Time: _0900_. Time changes happen often and if your time is changed the preop area will call you the afternoon before. - You and your visitor will be asked to self-screen and do not enter if you have any COVID symptoms. - A mask is optional within the hospital at this time. Patients may have clear liquids (water, carbonated beverages, clear teas, apple juice) until 3 hours prior to surgery with a maximum of 20 ounces. - No food from midnight until time of surgery Take the following medications with a SIP of water the morning of surgery: ___Propanolol and Trelegy DO NOT STOP ANY OF YOUR OTHER PRESCRIPTION MEDICATIONS PRIOR TO SURGERY ?EXCEPT THE FOLLOWING Medications to discontinue per physician _Stop Multivitamin 08-26-2023. No diabetic medicines morning of surgery. Please no make-up, nail zimbabwean, hairspray, perfume, deodorant, or body powder the day of surgery. No jewelry (including any body piercings) or valuables the day of surgery, leave them at home. Please take a shower or bath the night before, or the morning of, surgery with an antibacterial soap. Wear comfortable, loose fitting clothing. - Jewelry must be removed prior to entering the operating room. Rings and piercings that are not removed may be cut off. - The hospital will not accept responsibility for valuables. - Please leave all valuables, including medications, at home the day of surgery. If you are going home after surgery, a licensed front end driver must drive you home. - NO public transportation without another adult if you receive anesthesia. - We recommend that an adult stay with you for 24 hours following discharge. - We also recommend that you do not drive, make important decision, drink alcoholic beverages, or take any drugs that were not prescribed by your health care provider for at least 24 hours after your discharge time. Follow any additional instructions given to you from your surgeon. If you or anyone in your household have experienced Covid symptoms in the past week, please notify your surgeon or the nurse liaison at the phone number below for possible testing. Telephone instructions given to _Kvng__and asked if any additional questions and then verbalized understanding. Patient advised to call surgeon office or pre surgery nurse liaison [phone] if any additional questions.
--- NOTE | 2023-09-27 14:33 | WPDANESEPPF ---
Anes - Initial Pre Proc Eval Procedure: Operation Date: 09/28/23 09:30 Proposed Procedures p Right Knee Arthroscopy, Proceed As Indicated - Chetan Pa MD Date/Time: 09/27/23 14:33 Surgeon: Chetan Pa MD Pre Op Diagnosis: right knee medial meniscus tear Patient Data Age: 58 Gender: M Height: 1.85 m Weight: 123.6 kg Allergies Allergy/AdvReac Type Severity Reaction Status Date / Time Penicillins Allergy Severe Hives Verified 09/24/23 14:06 Home Medications Medication Instructions Recorded Confirmed Type esomeprazole magnesium 20 mg 20 mg PO DAILY 03/25/19 09/20/23 History capsule,delayed release (Nexium) glimepiride 4 mg tablet 8 mg PO BID 03/25/19 09/20/23 History metformin 850 mg tablet 850 mg PO BID 03/25/19 09/20/23 History propranolol 20 mg tablet 60 mg PO BID 03/25/19 09/20/23 History albuterol sulfate 90 mcg/actuation 2 puff inhalation Q4-6H PRN 01/11/21 09/20/23 History aerosol inhaler Shortness Of Breath amitriptyline 25 mg tablet 25 mg PO HS 01/11/21 09/20/23 History insulin glargine 100 unit/mL (3 28 unit subcut BID 01/11/21 09/20/23 History mL) subcutaneous pen (Basaglar KwikPen U-100 Insulin) losartan 25 mg tablet 25 mg PO DAILY 01/11/21 09/20/23 History simvastatin 20 mg tablet 20 mg PO DAILY 01/11/21 09/20/23 History fluticasone fur. 100 mcg-umeclid 1 inh inhalation DAILY 08/24/22 09/20/23 History 62.5 mcg-vilant 25 mcg inhalat.powder (Trelegy Ellipta) multivitamin 1 tablet PO DAILY 08/24/22 09/20/23 History chlorhexidine gluconate 4 % 1 applic topical ONCE #237 mL 09/21/23 Rx topical liquid (Hibiclens) Patient hx anesthesia problems: none Family hx anesthesia problems: none Results Review: All pre-operative results and documents have been reviewed as part of the pre-operative evaluation. [facility] Past Medical History Medical History (Updated 09/27/23 @ 14:34 by Dario Daniels DO) Anemia Asthma Bleeding tendency Cardiac arrhythmia Cirrhosis COPD (chronic obstructive pulmonary disease) Diabetes Type II Elevated lipids Esophageal varices Hepatitis Hypertension ZHANG (nonalcoholic steatohepatitis) Neuropathy Obstructive sleep apnea Right knee pain Surgical History Surgical History History of ear surgery History of esophagogastroduodenoscopy (EGD) [id number] [facility] History of rotator cuff surgery Family History Family History Father Diabetes mellitus Mother Squamous cell carcinoma Father Diabetes mellitus Other Asthma Heart disease History of arthritis History of lung disease History of neuropathy Social History Social History Smoking packs per day: 1 Smoking cigarettes per day: 20.0 Years smoked: 10 Smoking pack-years: 10.00 Smoking status: Former smoker Tobacco type: cigarettes Smoking end date: 05/07/07 Additional smoking assessment comments: Sarwat smoked 1 pack per day for 10 years Alcohol intake: never Substance use: never Substance use type: does not use Living arrangements: with family Gender identity (if verbalized by the patient): Male Spiritual care concerns: No Anes - Eval Final PreProcedure Day of Procedure 09/27/23 14:33 Patient weight: obese Heart: regular rate and rhythm Lungs: clear to auscultation Airway: Mallampati scale class II Neurological: alert and oriented Last oral intake: >/= 8 hours ASA classification: IV Emergent: no Anesthetic plan: proceed Anesthesia type and monitoring: general LMA and standard monitoring Results Review: All pre-operative results and documents have been reviewed as part of the pre-operative evaluation. Informed Consent: The patient's anesthetic plan and its attendant risks and benefits were discussed with the patient/fam
[2023-09-28] VITALS (9 sets, daily range): BP systolic 103–130; BP diastolic 65–77; PULSE 63–72; RESP 12–20; TEMP 36.4–36.6; O2SAT 94–98
[2023-09-28 08:37] LABS: Glucose Point of Care 171 mg/dl (65-105)
[2023-09-28 08:43] LABS: INR 1.1; Prothrombin Time 14.6 Seconds (11.1-14.7)
[2023-09-28 08:44] LABS: Partial Thromboplastin Time 29.7 Seconds (22.3-36.8)
[2023-09-28] MEDS: LACTATED RINGERS 1,000 ML 30 ML IV CONT ×2 (08:45→12:09)
[2023-09-28] MEDS: ACETAMINOPHEN 500 MG TABLET 1000 MG PO (08:45)
[2023-09-28] MEDS: CELECOXIB 200 MG CAPSULE PO (08:45)
[2023-09-28] MEDS: ceFAZolin 3 GM/D5W 100 ML 100 ML IVPB (10:15)
--- NOTE | 2023-09-28 10:20 | WPDHPUPDATE1 ---
History and Physical Update Update Date/Time: 09/28/23 10:20 History and Physical has been reviewed, including an updated exam of the patient. There are NO changes in the patient's condition. Risks, benefits, and alternatives have been discussed and questions answered. Patient agrees to proceed with procedure.
[2023-09-28] MEDS: BUPivacaine HCL 0.5% 10 ML AMP 30 ML INFILTRATE (10:52)
--- NOTE | 2023-09-28 11:19 | P.OP_ITS ---
Procedure Note - Detailed Date of Procedure 09/28/23 Pre-op Diagnosis right knee medial meniscus tear Post-op Diagnosis Same Procedure Performed RIGHT KNEE SCOPE Surgeon Chetan Pa MD Anesthesia General Description of Procedure PATIENT WAS TAKEN TO THE OR. THE RIGHT LEG WAS PREPPED AND DRAPED STERILE. TROC ARS WERE PLACED IN THE USUAL FASHION. CAMERA WAS INTRODUCED. THERE WAS CHONDROMALACIA TO THE PATELLA FEMORAL JOINT. THERE WAS A LOT OF SYNOVITIS IN ALL COMPARTMENTS. THE MEDIAL COMPARTMENT SHOWED CHONDROMALACIA TO THE MEDIAL FEMORAL CONDYLE. A SHAVER WAS USED TO PREFORM A CHONDROPLASTY. THERE WAS A COMPLEX MEDIAL MENISCUS TEAR WITH EVIDENCE OF PRIOR PARTIAL MENISCECTOMY. THE TEAR WAS OBLIQUE AND EXTENDED TO THE RED ZONE OF THE MENISCUS. THE TEAR WAS RESECTED WITH A BITER AND A SHAVER DOWN TO A SMOOTH BASE. THE ACL WAS INTACT. THE LATERAL MENISCUS WAS NOT TORN. THE LATERAL COMPARTMENT HAD MINIMAL CHONDROMALACIA. CHONDROPLASTY WAS PREFORMED. A SYNOVECTOMY WAS PREFORMED WELL. THE PATELLO FEMORAL JOINT UNDERWENT CHONDROPLASTY. THERE WAS GRADE 2 CHONDROMALACIA IN PART OF THE TROCHLEA AND PART OF THE PATELLA. SYNOVECTOMY WAS PREFORMED IN THE SUPERIOR MEDIAL COMPARTMENT. THE WOUNDS WERE APPROXIMATED WITH 4.0 NYLON. STERILE DRESSING WAS APPLIED. PATIENT WAS EXTUBATED. Estimated Blood Loss 5 Complications No immediate complications Condition Stable Disposition PACU
[2023-09-28 11:32] LABS: Glucose Point of Care 168 mg/dl (65-105)
[2023-09-28] MEDS: fentaNYL CITRATE INJ (*CRX) 100 MCG/2 ML VIAL 25 MCG IV PUSH ×2 (12:05→12:08)
[2023-09-28] MEDS: oxyCODONE HCL (*CRX) 5 MG TAB IR PO (12:38)
== END 2023-09-28 13:22 | disposition home or self-care (01) ==
PROVIDERS: Anesthesiology; PCP Emergency Medicine; Visit Provider Orthopaedic Surgery
PROC: (CPT 29870; principal; 2023-09-28 09:30)
DX: M23.332 Other meniscus derangements, other medial meniscus, left knee (principal); M22.41 Chondromalacia patellae, right knee; M65.861 Other synovitis and tenosynovitis, right lower leg; I10 Essential (primary) hypertension; E11.9 Type 2 diabetes mellitus without complications; D64.9 Anemia, unspecified; J44.9 Chronic obstructive pulmonary disease, unspecified; I49.9 Cardiac arrhythmia, unspecified; K74.60 Unspecified cirrhosis of liver; K75.81 Nonalcoholic steatohepatitis (NASH); I85.00 Esophageal varices without bleeding; G47.33 Obstructive sleep apnea (adult) (pediatric); E66.9 Obesity, unspecified; Z68.35 Body mass index [BMI] 35.0-35.9, adult; Z79.84 Long term (current) use of oral hypoglycemic drugs; Z79.51 Long term (current) use of inhaled steroids; Z79.4 Long term (current) use of insulin; Z98.890 Other specified postprocedural states; Z87.891 Personal history of nicotine dependence; Z84.0 Family history of diseases of the skin and subcutaneous tissue; Z82.49 Family history of ischemic heart disease and other diseases of the circulatory system
CPT/HCPCS: 29881; 29876; 36415; 82948; 85610; 85730; A9270; J0690; J1100; J2250; J2405; J2704; J3010; J7120

== ENCOUNTER 2023-11-23 15:00 | Outpatient (RCR) | payer MEDICARE, SELFPAY ==
--- NOTE | 2023-10-23 11:27 | OPREHPOC ---
Outpatient Therapy Plan of Care This is a Multidisciplinary Plan of Care that may contain components documented by all disciplines (PT, OT, and ST.) PT Problem 1 PT Problem #1 Knowledge Deficit PT Goal 1 Goal [place] with HEP Progress Met PT Problem 2 PT Problem #2 Edema PT Goal 1 Goal Demonstrate reduction in R knee edema fort soft tissue healing Target Visit 8 PT Problem 3 PT Problem #3 Impaired Range of Motion PT Goal 1 Goal Achieve 0-130 degrees R knee ROM for foot clearance and terminal stance Target Visit 8 PT Problem 4 PT Problem #4 Impaired Strength PT Goal 1 Goal Improve R knee strenght to 5/5 for improved functional stability Target Visit 8 PT Problem 5 PT Problem #5 Impaired Gait PT Goal 1 Goal Ambulate with even stride length bilaterally Target Visit 8
--- NOTE | 2023-10-23 11:27 | PTOPEVAL1 ---
Assessment and note entered by Rolando Pollard, PT Evaluation Information Assessment Status Evaluation Diagnosis R knee arthroscopy, OA of Right knee, R knee effusion Onset 09/28/23 Subjective Information Reports that he has been having some back pain since getting off of the walker. Reports that knee still feels a little swollen and he is getting some pain with walking. Feels that pain is nearly gone. No pain at night, but he he does get some pain with pressure if his knees are touching. Some trouble bending knee up to put on shoes and socks . Has trouble crossing and twisting knee. He has had his knee drained since surgery and it was all blood. Reported Pain Level Pain Score 1: Self Report Assessment PT Clinical Summary Patient presents with knee edema, loss of ROM and gait deviation all consistent with surgery. Will benefit from skilled therapy to address these deficits for evangelical of ROM and strength for ADL performance and proper gait. Plan of Care Interventions Electrical Stimulation,Gait Training,Hot Pack/Cold Pack,Manual Therapy,Neuro Re-education, Therapeutic Activities,Therapeutic Exercise PT Services Indicated Yes Treatment Frequency and 2x/week for 8 visits Duration These treatments will address the objective and functional deficits as defined above. The patient will be advanced safely and appropriately in order for the patient to progress towards his/her prior level of function. Additional exercises will be introduced and as well as a comprehensive home exercise program upon discharge, if needed, ?to ensure carryover of functional gains achieved in the clinic. This treatment plan has been reviewed and agreement upon by the patient.
--- NOTE | 2023-11-23 15:34 | OPREHPOC ---
Outpatient Therapy Plan of Care This is a Multidisciplinary Plan of Care that may contain components documented by all disciplines (PT, OT, and ST.) PT Problem 1 PT Problem #1 Knowledge Deficit PT Goal 1 Goal [place] with HEP Progress Met PT Problem 2 PT Problem #2 Edema PT Goal 1 Goal Demonstrate reduction in R knee edema fort soft tissue healing Target Visit 8 Progress Met PT Problem 3 PT Problem #3 Impaired Range of Motion PT Goal 1 Goal Achieve 0-130 degrees R knee ROM for foot clearance and terminal stance Target Visit 8 Progress Met PT Problem 4 PT Problem #4 Impaired Strength PT Goal 1 Goal Improve R knee strenght to 5/5 for improved functional stability Target Visit 8 Progress Met PT Problem 5 PT Problem #5 Impaired Gait PT Goal 1 Goal Ambulate with even stride length bilaterally Target Visit 8 Progress Met
--- NOTE | 2023-11-23 15:34 | PTOPDC ---
Assessment and note entered by Rolando Pollard, PT Evaluation Information Assessment Status Discharge Diagnosis R knee arthroscopy, OA of Right knee, R knee effusion Onset 09/28/23 Subjective Information Reports that overall he is doing very well. Pain is down and feels he is walking better. Feels that is is a bit weak but nothing limiting. Reported Pain Level Pain Score Mild Pain: Wang Calderon Assessment PT Clinical Summary Patient has made excellent progress with knee ROM, strength, and gait. He has met all goals for therapy and is suitable for discharge to [facility] at this time. Plan of Care PT Services Indicated Yes
== END 2023-11-23 15:50 | disposition home or self-care (01) ==
LOC: ANHGOSHPT 15:00
PROVIDERS: PCP Emergency Medicine; Visit Provider Orthopaedic Surgery
DX: M17.11 Unilateral primary osteoarthritis, right knee (principal); M25.561 Pain in right knee; M25.461 Effusion, right knee; S83.249D Other tear of medial meniscus, current injury, unspecified knee, subsequent encounter
CPT/HCPCS: 97016; 97110; 97140; 97161; 97530

== ENCOUNTER 2024-11-18 09:11 | Outpatient (CLI) | payer MEDICARE, SELFPAY ==
--- OUTSIDE RECORDS SUMMARY | 2024-11-18 09:24 | XMS_ITS | Encounter Summary ---
Author Organization [facility] Address [address] [place] [address] Care Team Providers Care Foreign Correspondent Name Role Phone Emir Abdullahi MD Primary Care Provider [phone] Encounter Details Date Type Department Care Team (Late st Contact Info) Description 02/22/2022 Patient Outreach [facility] [address] [place] [id number] Lexus Schultz RN Social History Tobacco Use Types Packs/Day Years Used Date Smoking Tobacco: Former Cigarettes 1.5 25 1 982 - 2006 Smokeless Tobacco: Never Alcohol Use Standard Drinks/Week Comments Yes 0 (1 standard drink = 0.6 oz pure alcohol) SELDOM IN PAST, ABSTINENT SINCE 2014 AUDIT-C Answer Date Recorded Q1: How often do you have a drink containing alc ohol? Never 02/21/2022 Average Number of Drinks Not on file 022 Frequency of Binge Drinking Not on file 02/04 Sex and Gender Information Value Date Recorded Sex Assigned at Not on file Legal Sex Male 7:19 AM [employer] Gender Identity Not on file Sexual Orientation Not on file documented as of this encounter Functional Status * Is person deaf or have serious hearing difficulty? Answer Date of Assessment Author No 02/21/2022 9:28 AM Zimmerman RN * Is person blind or have serious difficulty seeing? Answer Date of Assessment Author No 02/21/2022 9:28 AM Zimmerman RN * Does person have serious difficulty walking/climbing stairs? Answer Date of Assessment Author No 02/21/2022 9:28 AM CDT Tim RN * Does person have difficulty dressing/bathing? Answer Date of Assessment Author No 02/21/2022 9:28 AM VITALIYT Tim RN * Does person have difficulty doing errands alone? Answer Date of Assessment Author No 02/21/2022 9:28 AM Zimmerman RN documented as of this encounter Mental Status * Does person have difficulty concentrating/remembering/making decisions? Answer Entry Date Author No 02/21/2022 9:28 AM Zimmerman RN documented in this encounter Plan of Treatment Upcoming Encounters Date Type Department Care Team (Late st Contact Info) Description 06/01/2025 11:00 AM [employer] Appointment [facility] [address] [place] [phone] Leif Swenson MD [address] [place] [address] [address] [place] [address] 06/01/2025 12:30 PM [employer] Office Visit [facility] [place] [address] [place] [address], [place] [phone] Leif Swenson MD [address] [place] [address] [address] [place] [address] documented as of this encounter Goals Goal Patient Goal Type Associated Problems Recent Progress Patient-Stated? Author Medication Management General On track( 025 11:43 AM CDT) No Imani Jones, RN Note: Expected end date: ongoing Interventions: Take all medications as prescribed Let your doctor know right away about any changes in your medications Make sure to request a refill of your medication at least one week prior to your last dose documented as of this encounter Visit Diagnoses Not on filedocumented in this encounter Care Teams Foreign Correspondent Relationship Specialty Start Date End Date Emir Abdullahi MD PCP - General 02/22/18 documented as of this encounter
--- OUTSIDE RECORDS SUMMARY | 2024-11-18 09:24 | XMS_ITS | Clinical Summary ---
Author Organization [facility] [employer] Address [address] [facility] [place] [address] Care Team Providers Care Laborer/Grade Check Name Role Phone Emir Abdullahi MD Primary Care Provider [phone] Source Comments [facility] [employer],non-owned Affiliates and Associated Physician Practices is amultiple site organization consisting of ambulatory clinics and hospital sitesin [place], [place], [place] and [place]. This disclosure is being madepursuant to the Care Everywhere program and may not contain all information available regarding this patient. Last updated 18.[facility] [employer] Allergies Active Allergy Reactions Criticality Noted Date Comments Penicillins Rash,Anaphylaxis,Urt icar nh High 09/11/2017 black spots as a child Medications * Be aware that medications may not be up to date on this document. Alwaysverify current medications with the patient. BD PEN NEEDLE KAMERON U/F 32G X 4 MM MISC 1 syringe as directed 99 01/05/20 18 Active albuterol HFA (PROVENTIL; VENTOLIN; PROAIR) 108 (90 Base) MCG/ACT inhaler Inhale 2 (two) puffs by mouth every 6 hours as needed Active amitriptyline (ELAVIL) 25 MG tablet Take 1 (one) tablet by mouth at bedtime 10/02/19 19 Active losartan (COZAAR) 25 MG tablet Take 1 (one) tablet by mouth once daily Active Blood Glucose Monitoring Suppl (ONE TOUCH ULTRA 2) w/Device KIT as directed 08/03/19 20 Active ONE TOUCH ULTRASOFT LANCETS MISC as directed 08/03/19 20 Active Insulin Pen Needle (BD PEN NEEDLE KAMERON 2ND GEN) 32G X 4 MM MISC BD Kameron 2nd Gen Pen Needle 32 gauge x 5/32 INJECT ONCE DAILY UTD Active Insulin Pen Needle (BD PEN NEEDLE KAMERON 2ND GEN) 32G X 4 MM MISC BD Kameron 2nd Gen Pen Needle 32 gauge x 5/32 USE ONCE DAILY DIRECTED Active Fluticasone-Um eclidin-Vilant (TRELEGY ELLIPTA) 100-62.5-25 MCG/INH every 24 hours Activ e Ergocalciferol (VITAMIN D2) 10 MCG (400 UNIT) Vitamin D2 Active metFORMIN (Glucophage) 850 MG tablet Take 1 (one) tablet by mouth every 12 hours 07/18/19 23 Active esomeprazole (NexIUM OTC) 20 MG capsule Take 1 (one) capsule by mouth 2 times daily, before breakfast and supper 180 capsule 3 04/16/20 23 Active insulin glargine (Lantus/Semgle e) 100 units/mL pen Inject 70 (seventy) Units subcutaneously once Active HumaLOG KwikPen 100 UNIT/ML pen ADMINISTER 8 UNITS UNDER THE SKIN THREE TIMES DAILY WITH MEALS 02/07/20 24 Active propranolol ER 24hr (Inderal LA) 60 MG capsule TAKE 1 CAPSULE BY MOUTH EVERY DAY 90 capsule 3 04/07/20 24 Active ketoconazole (Nizoral) 2 % shampooIndicat ions:Other seborrheic dermatitis APPLY TO WET HAIR, SCALP, FACE, AND XIE, LEAVE ON FOR 3 MINUTES, THEN RINSE, USE 3 TIMES PER WEEK 120 mL 11 06/20/19 25 Active atorvastatin (Lipitor) 40 MG tablet Take 1 (one) tablet by mouth once daily Active Ozempic, 2 MG/DOSE, 8 MG/3ML pen Inject 2 (two) mg subcutaneously every 7 days (once a week) 10/24/19 25 Active simvastatin (ZOCOR) 20 MG tablet Take 1 (one) tablet by mouth at bedtime 1 02/04/20 18 025 Discontin ued(List Clean-Up) glimepiride (AMARYL) 4 MG tablet Take 1 (one) tablet by mouth 2 times daily 02/20/20 20 025 Discontin ued(List Clean-Up) Active Problems Problem Noted Date Diagnosed Date History of squamous cell carcinoma in situ 08/10 Melanocytic nevi of face 08/10/2021 Solar lentiginosis 08/10/2021 Actinic keratoses 04/18/2021 Other seborrheic dermatitis 04/18/2021 Xerosis cutis 04/18/2021 Seborrheic keratoses 04/18/2021 Type 2 diabetes mellitus 04/09/2018 Obesity 04/09/2018 YUE (obstructive sleep apnea) 04/09/2018 Overview (02/21/2022): CPAP since about 2015 No issues with sedation for EGDs Colon adenomas 04/09/2018 Overview (11/19/2020): Per patient, adenomas removed in [place] May 2016. 04/09/18 colonoscopy: 2 small adenomas removed, repeat in 5 years 11/16/20 colonoscopy: no adenomas, repeat in 7 years mcm Liver cirrhosis secondary to MASH 02/22/2018 Overview (11/11/2024): 10/07/18 US: steatosis with sparing next to GB, no focal lesions, patent vessels, no ascites 11/16/20 US: steatosis with sparing next to GB, no focal lesions, patent vessels, no ascites mcm 02/21/22 US: no change in steatosis with focal sparing, no focal lesions, no ascites mcm 08/30/22 US: smooth contours, steatosis with focal sparing next to GB, no focal lesions, no ascites mcm 04/16/23 US: smooth contours, no focal lesions except focal sparing next to GB, some mild pericholecystic fluid, no ascites mcm 11/12/23 US: no focal lesions except focal sparing next to GB, resolution of pericholecystic fluid 06/02/24 US: steatosis, smooth contour, no focal lesions except focal sparing next to GB, unchanged trace loculated fluid next to GB/Peng's negative, no ascites mcm 11/10/24 US: steatosis, smooth contour, no focal lesions, patent vessels, no ascites mcm COPD with asthma Overview (11/16/2020): Switched from CPAP to non-invasive ventilator without supplemental oxygen September 2020 Esophageal varices Overview (02/21/2022): Multiple bandings in [facility] and by Dr. Granados in [place] 04/09/18 EGD: small varices, scars and webs from prior bandings, no banding done, moderate PHG 01/13/19 EGD for melena: large varices banded x 4 02/17/19 EGD: large varices banded x 2, mod-severe PHG vs GAVE 10/13/19 EGD: large varix banded x 1, moderate PHG 12/09/19 EGD: small varices, no banding, mild PHG 11/16/20 EGD: medium varices banded x 2, moderate PHG 02/21/22 EGD: small varices, scarring from prior EVL, mod PHG, no banding Neuropathy Hypercholesterolemia Resolved Problems Problem Noted Date Diagnosed Date Resolved Date Upper GI bleed 01/12/2019 05/11/2019 Liver problem 02/22/2018 02/25/2018 Iron overload 02/22/2018 02/25/2018 Encounters Date Type Department Care Team Description 11/10/2024 11:30 AM CDT Office Visit [facility] - GI [address] [facility] [place] [address] Leif Brar MD Liver cirrhosis secondary to MASH (Primary Dx); Esophageal varices 11/10/2024 9:45 AM CDT - 11/10/2024 11:59 PM CDT Hospital Encounter [facility] [address] [place] [address] Leif Brar MD Discharge Disposition: Home or Self Care 11/10/2024 Travel from Last 3 Months Immunizations Immunization Administration Dates Next Due Covid Moderna primary monovalent 12+ yr 0.5mL ,07/14/2020 INFLUENZA VACCINE 01/26/2022,03/21/2021 INFLUENZA VACCINE, CELL CULT URE, QUADR. (FLUCELVAX QUADRIVALENT; 6MO+) (CCIIV4) 01/24/2020 INFLUENZA VACCINE, QUADR. (F LUZONE; FLULAVAL; FLUARIX; AFLURIA QUADRIVALENT; 6MO+), 0.5 ML (IIV4) 02/19/2019 Social History Tobacco Use Types Packs/Day Years Used Date Smoking Tobacco: Former Cigarettes 1.5 25 1 2 - 2006 Smokeless Tobacco: Never Tobacco Cessation:Counseling Given: Not Answered Alcohol Use Standard Drinks/Week Comments Yes 0 [...] on file Legal Sex Male 7:19 AM TRANSPORTATION SALES CONSULTANT Gender Identity Not on file Sexual Orientation Not on file Last Filed Vital Signs Vital Sign Reading Time Taken Comments Blood Pressure 121/74 11/10/2024 11:35 AM CDT Pulse 71 11/10/2024 11:35 AM CDT Temperature 36.6 C (97.8 F) 11/10/2024 11:35 AM CDT Respiratory Rate 12 11/10/2024 11:35 AM CDT Oxygen Saturation 98% 11/10/2024 11:35 AM CDT Inhaled Oxygen Concentration - - Weight 111.6 kg (246 lb) 11/10/2024 11:35 AM CDT Height 185.4 cm (6' 0.99) 11/10/2024 11:35 AM C DT Body Mass Index 32.46 11/10/2024 11:35 AM CDT Plan of Treatment Upcoming Encounters Date Type Department Care Team (Late st Contact Info) Description 06/01/2025 11:00 AM TRANSPORTATION SALES CONSULTANT Appointment [facility] [address] [place] [address] Leif Swenson MD [address] [place] [address] [address] [place] [address] 06/01/2025 12:30 PM TRANSPORTATION SALES CONSULTANT Office Visit [facility] - GI [address] [place] [address], [place] [address] Leif Swenson MD [address] [place] [address] [address] [place] [address] Health Maintenance Due Date Last Done Comments COLOGUARD (AGES 45-75) - COLON CA SCREENING 1965 CT COLONOGRAPHY - COLON CA SCREENING 1965 FIT - COLON CA SCREENING 1965 FLEX SIG - COLON CA SCREENING 1965 HIV SCREENING 1981 DTAP/TDAP/TD VACCINES (1 - Tdap) 1985 HEPATITIS B VACCINE (1 of 3 - 19+ 3-dose series) 1985 PNEUMOCOCCAL VACCINE 50+ (1 of 2 - PCV) 1985 ZOSTER VACCINE (1 of 2) 01/14/2016 DIABETES RETINOPATHY SCREENING 07/17/2018 DIABETES-FOOT EXAM WITH MONOFILAMENT 07/17/2018 DIABETES-HGB A1C 12/27/2022 06/29/2022, 02/22/2018 COVID-19 VACCINE (3 - 2023- season) 2024 08/10/2020, 07/14/2020 DEPRESSION SCREENING 05/07/2024 DIABETES - URINE PROTEIN SCREENING 05/07/2024 MEDICARE AWV CALENDAR YEAR 2024 INFLUENZA VACCINE (#1) 2025 , 03/21/2021, 01/24/2020, Additional history exists DIABETES-SERUM CREATININE 06/09/20252024, 01/06/2023, 06/29/2022, Additional history exists COLON MONITORING 11/16/2030 11/16/2020, , 04/09/2018, Additional history exists COLONOSCOPY - COLON CA SCREENING 11/16/2030 11/16/2020, 11/16/2020, 04/09/2018, Additional history exists Colorectal Cancer Screening 11/16/2030 HEPATITIS C SCREENING Completed 02/22/2018 HIB VACCINE Aged Out No longer eligi ble based on patient's age to complete this topic HPV VACCINE Aged Out No longer eligi ble based on patient's age to complete this topic MENINGOCOCCAL (Group B) VACCINE SHARED DECISION-MAKING Aged Out No longer eligible based on patient's age to complete this topic MENINGOCOCCAL GROUPS A/C/Y/W VACCINE Aged Out No longer eligible based on patient's age to complete this topic Goals Goal Patient Goal Type Associated Problems [...] one week prior to your last dose Procedures Procedure Name Priority Date/Time Associated Diagnosis Comments US ABDOMEN LIMITED Routine 11/10/2024 10 :17 AM CDT Liver cirrhosis secondary to MASH COMPREHENSIVE METABOLIC PANEL Routine 06/09/2024 7:09 AM TRANSPORTATION SALES CONSULTANT Liver cirrhosis secondary to MASH HEMOGLOBIN A1C (EXTERNAL RESULT ENTRY) Routine 06/29/2022 7:54 AM TRANSPORTATION SALES CONSULTANT ENDOSCOPY, COLON, SCREENING Routine 11/16/2020 9:50 AM CDT HEPATITIS C ANTIBODY Routine 02/22/2018 1:44 PM CDT Other cirrhosis of liver ZHANG (nonalcoholic steatohepatitis) Varices of esophagus determined by endoscopy from Last 3 Months or Most Recently Relevant to Health Maintenance Results * US Abdomen Limited (11/10/2024 10:17 AM CDT) Anatomical Region Laterality Modality Abdomen Ultrasound 11/10/2024 11:2 0 AM CDT Impressions 11/10/2024 3:33 PM CDT Impression: 1.Liver Visualization Score B: Moderate limitations. 2.US-1 Negative. Repeat surveillance US in 6 months. Report drafted by Logan Zeng Dr (resident). I, Shameka Brenner MD have personally reviewed and interpreted this examination/study. > Interpreting Provider: Shameka Brenner MD on 11/10/2024 3:33 PM Narrative 11/10/2024 3:33 PM CDT PROCEDURE: US ABDOMEN LIMITED, DATE/TIME OF EXAM: 11/10/2024 10:18 AM, LOCATION [facility] INDICATION: K75.81: Liver cirrhosis secondary to ZHANG (HCC) K74.60: Liver cirrhosis secondary to ZHANG (HCC) COMPARISON: Abdominal limited US 06/02/2024 Findings Liver Visualization Score: Moderate limitations in liver visualization Liver Morphology: The liver is increased in echogenicity. The liver has a smooth surface contour. Liver Observations: Previously seen area of focal hypodensity seen on prior ultrasounds are unable to be visualized secondary to limitations of this examination. Main Portal Vein: Color Doppler evaluation demonstrates patency of the main portal vein. Hepatic Veins: Color Doppler evaluation demonstrates patency of the hepatic veins. Bile Ducts: The common bile duct is nondilated, measuring 6 mm. No intrahepatic or extrahepatic biliary dilation. Gallbladder: No gallstones or pericholecystic fluid is seen.. Sonographic Peng's sign is negative. Ascites: No ascites is present. Spleen: The spleen measures 17 cm in length. Pancreas: The visible pancreas is normal in echogenicity. Right Kidney: The right kidney measures 12.1 x 6.6 x 5.8 cm. Limited views of the right kidney reveal no evidence of nephrolithiasis or hydronephrosis. No discrete mass identified. Procedure Note Shameka Brenner MD - 11/10/2024 PROCEDURE: US ABDOMEN LIMITED, DATE/TIME OF EXAM: 11/10/2024 10:18 AM, LOCATION [facility] INDICATION: K75.81: Liver cirrhosis secondary to ZHANG (HCC) K74.60: Liver cirrhosis secondary to ZHANG (HCC) COMPARISON: Abdominal limited US 06/02/2024 Findings Liver Visualization Score: Moderate limitations in liver visualization Liver Morphology: The liver is increased in echogenicity. The liver has a smooth surface contour. Liver Observations: Previously seen area of focal hypodensity seen on prior ultrasounds are unable to be visualized secondary to limitations of this examination. Main Portal Vein: Color Doppler evaluation demonstrates patency of the main portal vein. Hepatic Veins: Color Doppler evaluation demonstrates patency of the hepatic veins. Bile Ducts: The common bile duct is nondilated, measuring 6 mm. No intrahepatic or extrahepatic biliary dilation. Gallbladder: No gallstones or pericholecystic fluid is seen.. Sonographic Peng'ssign is negative. Ascites: No ascites is present. Spleen: The spleen measures 17 cm in length. Pancreas: The visible pancreas is normal in echogenicity. Right Kidney: The right kidney measures 12.1 x 6.6 x 5.8 cm. Limited views of theright kidney reveal no evidence of nephrolithiasis or hydronephrosis. No discrete mass identified. Impression: 1.Liver Visualization Score B: Moderate limitations. 2.US-1 Negative. Repeat surveillance US in 6 months. Report drafted by Logan Zeng Dr (resident). I, Shameka Brenner MD have personally reviewed and interpreted this examination/study. > Interpreting Provider: Shameka Brenner MD on 11/10/2024 3:33 PM us Leif Swenson MD US ORDERABLES Fi nal Result * (ABNORMAL) COMPREHENSIVE METABOLIC PANEL (06/09/2024 7:09 AM TRANSPORTATION SALES CONSULTANT) Glucose 156(H) 65 - 99 mg/dL [facility] Comment: Fasting reference interval For someone without known diabetes, a glucose value >125 mg/dL indicates that they may have diabetes and this should be confirmed with a follow-up test. BUN 11 7 - 25 mg/dL [facility] Creatinine 0.69(L) 0.70 - 1.30 mg/dL [facility] eGFR by Cystatin C 107 > OR = 60 mL/min/1. 73m2 [facility] BUN/Creatinine Ratio 16 6 - 22 (calc) [facility] Sodium 138 135 - 146 mmol/L [facility] Potassium 3.6 3.5 - 5.3 mmol/L [facility] Chloride 102 98 - 110 mmol/L [facility] CO2 30 20 - 32 mmol/L [facility] Calcium 8.8 8.6 - 10.3 mg/dL [facility] Protein Total 7.0 6.1 - 8.1 g/dL [facility] Albumin 3.9 3.6 - 5.1 g/dL [facility] Globulin Total 3.1 1.9 - 3.7 g/dL (calc) [facility] Albumin/Globulin Ratio 1.3 1.0 - 2.5 (calc) [facility] Bilirubin Total 1.0 0.2 - 1.2 mg/dL [facility] Alkaline Phosphatase 76 35 - 144 U/L [facility] AST 27 10 - 35 U/L [facility] ALT 28 9 - 46 U/L [facility] Comment: Test Performed at: [facility] [address] DANIEL PRINGLE MD Blood BLOOD SPECIMEN / Unknown 06/09/2024 7:09 AM TRANSPORTATION SALES CONSULTANT 06/09/2024 7:10 AM TRANSPORTATION SALES CONSULTANT us Leif Swenson MD LAB - CHEMISTRY OR DERABLES Final Result Performing Organization Address [facility] Co de Phone Number [facility] [address] [place] [address] * (ABNORMAL) HEMOGLOBIN A1C (EXTERNAL RESULT ENTRY) (06/29/2022 7:54 AM TRANSPORTATION SALES CONSULTANT) Hemoglobin A1c (EXTERNAL RESULT) 7.3(A) % [facility] Blood BLOOD SPECIMEN / Unknown 06/29/2022 7:54 AM TRANSPORTATION SALES CONSULTANT us Historical Provider LAB - CHEMISTRY ORDERABLE S Final Result Performing Organization Address [facility] de Phone Number [facility] [phone] [place] [address] * ENDOSCOPY, COLON, SCREENING (11/16/2020 9:50 AM CDT) Report Endoscopy POC Endoscopy Department Report _ Patient Name: Mariama Avilez Procedure Date: 11/16/2020 9:50 AM Date of : 1965 Classification: Outpatient Gender: Male Ethnicity: Not or Race: White _ Providers: Leif Castrejon MD, Nixon Dean (Fellow) Referring MD: Emir Abdullahi (Referring MD) Procedure: Colonoscopy Indications: Screening for colorectal malignant neoplasm Medications: Monitored Anesthesia Care Description of Procedure: Pre-Anesthesia Assessment: - Prior to the procedure, a History and Physical was performed, and patient medications and allergies were reviewed. The patient's tolerance of previous anesthesia was also reviewed. The risks and benefits of the procedure and the sedation options and risks were discussed with the patient. All questions were answered, and informed consent was obtained. Prior Anticoagulants: The patient has taken no previous anticoagulant or antiplatelet agents. ASA Grade Assessment: III - A patient with severe systemic disease. After reviewing the risks and benefits, the patient was deemed in satisfactory condition to undergo the procedure. After I obtained informed consent, the scope was passed under direct vision. Throughout the procedure, the patient's blood pressure, pulse, and oxygen saturations were monitored continuously. The [id number] was introduced through the anus and advanced to the cecum, identified by appendiceal orifice and ileocecal valve. The colonoscopy was performed without difficulty. The patient tolerated the procedure well. The quality of the bowel preparation was evaluated using the BBPS ([place] Bowel Preparation Scale) with scores of: Right Colon = 2 (minor amount of residual staining, small fragments of stool and/or opaque liquid, but mucosa seen well), Transverse Colon = 3 (entire mucosa seen well with no residual staining, small fragments of stool or opaque liquid) and Left Colon = 2 (minor amount of residual staining, small fragments of stool and/or opaque liquid, but mucosa seen well). The total BBPS score equals 7. The ileocecal valve, appendiceal orifice, and rectum were photographed. Findings: The perianal and digital rectal examinations were normal. A localized area of flat, erythematous mucosa was found in the ascending colon. This was thought possibly to be an SSA versus atypical AVM vs portal colopathy. Area was successfully injected with 2 mL Orise gel for lesion assessment, and this injection appeared to lift the lesion adequately. During injection, the lesion bled readily. This was completely resected en bloc with a hot snare for histology. There was no bleeding after polypectomy. To prevent bleeding post-intervention , one hemostatic clip was successfully placed. There was no bleeding at the end of the procedure. A 3 mm polyp was found in the transverse colon. The polyp was sessile. The polyp was removed with a jumbo cold forceps. Resection and retrieval were complete. Multiple further patchy areas of flat erythematous mucosa similar in appearance to the ascending colon lesion were found in the sigmoid colon and in the transverse colon. These were not biopsied. The retroflexed view of the distal rectum and anal verge was normal and showed no anal or rectal abnormalities. Estimated Blood Loss: Estimated blood loss was minimal. Estimated blood loss was minimal. Complications: No immediate complications. Impression: - Flat, erythematous mucosa in the ascending colon. Lifted. Resected. Clip was placed. Suspect SSA vs atypical AVM vs portal colopathy. - One 3 mm polyp in the transverse colon, removed with a jumbo cold forceps. Resected and retrieved. - Multiple further patches of flat erythematous mucosa in the sigmoid colon and in the transverse colon. - The distal rectum and anal verge are normal on retroflexion view. Recommendation: - Patient has a contact number available for emergencies. The signs and symptoms of potential delayed complications were discussed with the patient. Return to normal activities tomorrow. Written discharge instructions were provided to the patient. - Resume previous diet. - Continue present medications. - Await pathology results. - Repeat colonoscopy is recommended for surveillance. The colonoscopy date will be determined after pathology results from today's exam become available for review. Attending Participation: I was present and participated during the entire procedure, including non-pena portions. Procedure Code(s): --- Professional --- 15537, Colonoscopy, flexible; with removal of tumor(s), polyp(s), or other lesion(s) by snare technique 59991, Colonoscopy, flexible; with directed submucosal injection(s), any substance 14995, 59, Colonoscopy, flexible; with biopsy, single or multiple Diagnosis Code(s): --- Professional --- Z12.11, Encounter for screening for malignant neoplasm of colon K63.5, Polyp of colon CPT copyright 2019 [employer]. All rights reserved. The codes documented in this report are preliminary and upon human resources trainee review may be revised to meet current compliance requirements. Leif Castrejon MD 11/16/2020 10:55:59 AM This report has been signed electronically. Note Initiated On: 11/16/2020 9:50 AM Number of Addenda: [address] [id number] [facility] 11/16/2020 9:50 AM CDT us Leif Swenson MD GI PROCEDURE ORDER PASCUAL Edited Result - Final [facility] * HEPATITIS C ANTIBODY (02/22/2018 1:44 PM CDT) Hepatitis C Antibody Non-react danica Non-reac tive 02/22/2018 3:32 PM CDT [facility] Comment: Hepatitis C Antibody screen indicates no serologic evidence of past or current infection with Hepatitis C Virus. Patients with unexplained liver disease who are immunocompromised or suspected of having acute Hepatitis C infection may benefit from Nucleic Acid Test (MADELEINE) for Hepatitis C Viral RNA to confirm Hepatitis C status. Blood BLOOD SPECIMEN / Unknown Lab Venipuncture / Unknown 02/22/2018 1:44 PM CDT 02/22/2018 2:04 PM CDT us Steven Cantu MD LAB - CHEMISTRY ORDERAB LES Final Result [address] [phone] from Last 3 Months or Most Recently Relevant to Health Maintenance Insurance [employer] MEDICARE ADV HMO & PPO [facility] Advance Directives * Full Code (Latest Code Status on File) Date Activated Date Inactivated Comments 01/12/2019 11:18 PM 2019 3:17 PM Care Teams Laborer/Grade Check Relationship Specialty Start Date End Date Emir Abdullahi MD PCP - General 02/22/18
--- OUTSIDE RECORDS SUMMARY | 2024-11-18 09:24 | XMS_ITS | Clinical Summary ---
Author Organization [facility] Address [address] [place] [address] Care Team Providers Care Director Of Vocational Training Name Role Phone Emir Abdullahi MD Primary Care Provider [phone] Allergies Active Allergy Reactions Criticality Noted Date Comments Penicillins Anaphylaxis,Hives,Ra sh,U rticaria High 09/11/2017 black spots as a child Hives Medications amitriptyline (ELAVIL) 25 mg tablet Take 1 tablet (25 mg total) by mouth nightly at bedtime Active esomeprazole DR (NexIUM) 20 mg capsule Take 1 capsule (20 mg total) by mouth 2 times daily Active losartan (COZAAR) 25 mg tablet Take 1 tablet (25 mg total) by mouth daily Active metFORMIN (GLUCOPHAGE) 850 mg tablet Take 1 tablet (850 mg total) by mouth 2 (two) times a day with meals Active propranolol LA (INDERAL LA) 60 mg 24 hr capsule Take 1 capsule (60 mg total) by mouth daily Active albuterol HFA (PROVENTIL HFA,VENTOLIN HFA,PROAIR HFA) 90 mcg/actuation inhaler Inhale 2 puffs every 6 (six) hours as needed for wheezing or shortness of breath 1 each 4 Active fluticasone-ume clidin-vilanter (TRELEGY ELLIPTA) 100-62.5-25 mcg inhaler Inhale 1 puff daily 1 each 4 Active ketoconazole (NIZORAL) 2 % shampoo APPLY TO WET HAIR, SCALP, FACE, AND XIE, LEAVE ON FOR 3 MINUTES, THEN RINSE; USE 3 TIMES WEEKLY(MUST LAST 30 DAYS) 3 Active ergocalciferol, vitamin D2, 10 mcg (400 unit) tablet Vitamin D2 Active simvastatin (ZOCOR) 40 mg tablet Take 1 tablet (40 mg total) by mouth daily 5 Active HumaLOG 100 unit/mL pen for injection ADMINISTER 8 UNITS UNDER THE SKIN THREE TIMES DAILY WITH MEALS 4 Active Ozempic 0.25 mg or 0.5 mg (2 mg/3 mL) pen injector injection 5 Active TOUJEO MAX 300 unit/mL (3 mL) pen for injection Inject 70 Units under the skin daily 5 Active atorvastatin (LIPITOR) 40 mg tablet Take 1 tablet (40 mg total) by mouth daily Active Active Problems Problem Noted Date Diagnosed Date Cigarette nicotine dependence in remission 06/30 Assessment & Plan (06/30/2024 1:06 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): He quit in 2006 He does not qualify for annual cancer screenings Chronic hypercapnic respiratory failure 12/27/19 Assessment & Plan (10/01/2024 1:13 PM CDT): BIPAP was considered and ruled ineffective Continue NIV with all sleep and as needed during the day He is aware of supply replacement and cleaning I will plan to reviewed downloads every 6 months and as needed with changes in condition Assessment & Plan (06/30/2024 1:10 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): BIPAP was considered and ruled ineffective Continue NIV with all sleep and as needed during the day He is aware of supply replacement and cleaning Need current download we will contact his DME for a copy Assessment & Plan (12/27/2023 8:39 PM CDT): BIPAP was considered and ruled ineffective Continue NIV with all sleep Need current download Acute exacerbation of chroni c obstructive pulmonary disease (COPD) 12/27/2023 Assessment & Plan (12/27/2023 8:38 PM CDT): Increased wheezing and dyspnea for 4-5 days I will treat him with a steroid burst and he is aware to call if he has no improvement. Dyspnea on exertion 12/27/2023 Assessment & Plan (12/27/2023 8:41 PM CDT): This is likely multifactoral He has not completed his echocardiogram He will check the cost and schedule if it is not cost prohibitive Chronic obstructive pulmonary disease, unspecifi ed 09/25/2023 Assessment & Plan (10/01/2024 1:13 PM CDT): Continue Trelegy Ellipta 100 daily at the same time Albuterol 2 puffs every 4-6 hours as needed only, he is aware of indications for use He does not have frequent exacerbations I do not see a peripheral eosinophil count Continue weight loss and increased exercise We have discussed signs and symptoms that would require earlier evaluation or change to his plan of care Assessment & Plan (06/30/2024 1:09 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): Continue Trelegy Ellipta 100 daily. He has had the best clinical benefit in the past from Trelegy Ellipta. It has become cost prohibitive. He applied for the shunt assistance program but was denied I will plan to give him a free coupon to use for 1 month If this remains ineffective consider combination Anoro and Arnuity 100 I will reassess him in 3 months and may consider weaning him to dual bronchodilation pending peripheral eosinophil count Continue albuterol as needed only, he is aware of indications for use We have discussed signs and symptoms that would require earlier evaluation or change to his plan of care Assessment & Plan (12/27/2023 8:41 PM CDT): Continue Trelegy Ellipta 100 daily. I have given him 2 samples and he is familiar with use I have also given him paperwork for the assistance program to fill out Continue albuterol as needed only, discussed indications for use Encounters Date Type Department Care Team Description 10/01/2024 10:30 AM CDT Office Visit [facility] Pul[facility] at [address] [place] [address] Nicole Zavala, MULTIFOCAL LENS ASSEMBLER Centrilobular emphysema (HCC) (Primary Dx); Chronic hypercapnic respiratory failure (HCC) 09/05/2024 Telephone [facility] at [address] [place] [address] Inna Razo LPN from Last 3 Months Surgical History Surgery Date Site/Laterality Comments MASTOIDECTOMY UPPER GASTROINTESTINAL ENDOSCOPY Medical History Medical History Date Comments Malignant neoplasm of skin Diabetes (HCC) Dyslipidemia Obesity Neuropathy Disorder of eye Acute otitis media Esophageal varices (HCC) Acute exacerbation of chroni c obstructive pulmonary disease (COPD) (HCC) Chronic respiratory failure (HCC) Disorder of lung Sleep apnea Fatigue Dyspnea on exertion Esophageal varices (HCC) Nonalcoholic steatohepatitis H/O mastoidectomy Chronic hypercapnic respiratory failure (HCC) Acute exacerbation of chroni c obstructive pulmonary disease (COPD) (HCC) 12/27/2023 Cigarette nicotine dependence in remission 06/30 Family History Medical History Relation Name Comments Diabetes Father Squamous cell carcinoma Mother Relation Name Status Comments Father Mother Social History Tobacco Use Types Packs/Day Years Used Date Smoking Tobacco: Former Cigarettes 1.5 18.3 0 08/08/2006 - 1982 Tobacco Cessation:Counseling Given: Not Answered Sex and Gender Information Value Date Recorded Sex Assigned at Not on file Legal Sex Male 10:11 AM PARKING STATION ATTENDANT Gender Identity Not on file Sexual Orientation Not on file Obstetrics History Last Filed Vital Signs Vital Sign Reading Time Taken Comments Blood Pressure 120/70 10/01/2024 10:15 AM CDT Pulse 81 10/01/2024 10:15 AM CDT Temperature 36.4 C (97.6 F) 10/01/2024 10:15 AM CDT Respiratory Rate 18 10/01/2024 10:15 AM CDT Oxygen Saturation 96% 10/01/2024 10:15 AM CDT Inhaled Oxygen Concentration - - Weight 117 kg (258 lb) 10/01/2024 10:15 AM CDT Height 185.4 cm (6' 1) 10/01/2024 10:15 AM CDT Body Mass Index 34.04 10/01/2024 10:15 AM CDT Plan of Treatment Health Maintenance Due Date Last Done Comments Colon Cancer Screening-Colonoscopy 1966 Depression Screening 1966 Hepatitis C Screening 1966 Prostate Cancer Screening-PSA 1966 DTaP/Tdap/Td Vaccine (1 - Tdap) 1977 Regular Well Visit/Exam 18-64 01/14/1984 Pneumococcal vaccine <65 (1 of 2 - PCV) 1985 Zoster Vaccine (2 of 2) 02/07/2022 12/13/2021 Covid-19 Vaccine (7 - 2023-2 5 season) 2024 12/02/2021, 04/24/2021, 08/15/2020, Additional history exists Influenza Vaccine (#1) 2025 , 03/21/2021, 02/21/2021, Additional history exists Hepatitis B Screening Completed 08/03/2023 , 04/17/2023, 01/17/2023 Insurance [employer] PPO Care Teams Director Of Vocational Training Relationship Specialty Start Date End Date Emir Abdullahi MD PCP - General 05/23/18
--- OUTSIDE RECORDS SUMMARY | 2024-11-18 09:24 | XMS_ITS | Referral Summary ---
Author Organization [facility] Address [address] [place] [address] Care Team Providers Care Television Picture Tube Rebuilder Name Role Phone Emir Abdullahi MD Primary Care Provider Encounters Date Type Department Care Team Description 10/01/2024 10:30 AM CDT Office Visit [facility] Pul[facility] at [address] [place] [phone] Nicole Zavala NP Centrilobular emphysema (HCC) (Primary Dx); Chronic hypercapnic respiratory failure (HCC) 09/05/2024 Telephone [facility] Pul[facility] at [address] [place] [phone] Inna Razo LPN from Last 3 Months Allergies Active Allergy Reactions Criticality Noted Date [...] 06/30 Assessment & Plan (06/30/2024 1:06 PM 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): He quit in 2006 He does not qualify for annual cancer screenings Chronic hypercapnic respiratory failure 12/27/19 24 Assessment & Plan (10/01/2024 1:13 PM CDT): BIPAP was considered and ruled ineffective Continue NIV with all sleep and as needed during the day He is aware of supply replacement and cleaning I will plan to reviewed downloads every 6 months and as needed with changes in condition Assessment & Plan (06/30/2024 1:10 PM 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): BIPAP was considered and ruled ineffective Continue [...] care Assessment & Plan (06/30/2024 1:09 PM 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): Continue Trelegy Ellipta 100 daily. 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
[2024-11-18 15:04] LABS: Hematocrit 43.9 % (42.0-52.0); Hemoglobin 14.5 g/dL (14.0-18.0); Immature Granulocyte Percent A 0.2 % (0-0.5); Immature Platelet Fraction Pct 7.3 % (0.9-11.2); Lymphocytes Absolute Auto 0.77 K/mm3 (0.9-3.2); Mean Corpuscular HGB Conc 33.0 g/dl (32-36); Mean Corpuscular Hemoglobin 30.6 pg (26-34); Mean Corpuscular Volume 92.6 fl (80-100); Nucleated Red Blood Cells Absolute Auto 0.000 K/mm3 (0.0-0.012); Nucleated Red Blood Cells Perc 0.0 % (0.0-0.2); Platelet Count Result 84 k/mm3 (150-375); Red Blood Count 4.74 M/mm3 (4.6-6.20); White Blood Count 5.2 K/mm3 (4.5-10.0)
[2024-11-18 15:10] LABS: INR 1.1; Prothrombin Time 14.6 Seconds (11.1-14.7)
[2024-11-18 15:12] LABS: Alanine Aminotransferase 35 U/L (6-50); Albumin Level 4.2 g/dL (3.5-5.1); Alkaline Phosphatase 75 U/L (38-126); Anion Gap 12 mmol/L (4-12); Aspartate Amino Transferase 53 U/L (17-59); Bilirubin,Total 1.9 mg/dL (0.2-1.3); Blood Urea Nitrogen 12 mg/dL (9-20); Calcium 9.8 mg/dL (8.4-10.2); Carbon Dioxide 22 mmol/L (22-30); Chloride 105 mmol/L (98-107); Estimated Glomerular Filt Rate > 60; Glucose 124 mg/dL (65-110); Potassium 4.2 mmol/L (3.4-5.0); Sodium 139 mmol/L (137-145); Total Protein 8.1 g/dL (6.3-8.2)
== END 2024-11-18 09:12 | disposition home or self-care (01) ==
PROVIDERS: PCP Emergency Medicine; Visit Provider Internal Medicine Gastroenterology
DX: K75.81 Nonalcoholic steatohepatitis (NASH) (principal); K74.60 Unspecified cirrhosis of liver
CPT/HCPCS: 36415; 80053; 82105; 85025; 85055; 85610